=== PATIENT | male | born 1960 | race Caucasian/White ===

== ENCOUNTER 2022-05-02 08:58 | Outpatient (REF) | payer OTHER, SELFPAY ==
[2022-05-02 12:42] LABS: Influenza A PCR NEGATIVE (Negative); Influenza B PCR NEGATIVE (Negative); Resp Syncy Virus RNA Qual PCR NEGATIVE (Negative); SARS COV2 PCR INHOUSE NEGATIVE (Negative)
== END 2022-05-02 08:59 | disposition home or self-care (01) ==
LOC: HO.LAB 08:58
PROVIDERS: Visit Provider Family Medicine
DX: R05.9 Cough, unspecified (principal); Z20.822 Contact with and (suspected) exposure to COVID-19
CPT/HCPCS: 0241U

== ENCOUNTER → 2022-07-04 13:47 | Outpatient (BNVA) | payer OTHER, SELFPAY | PROVIDERS: PCP Hospitalist; Referring Provider Hospitalist; Visit Provider Internal Medicine | DX: I42.8 Other cardiomyopathies (principal); Z45.02 Encounter for adjustment and management of automatic implantable cardiac defibrillator | CPT/HCPCS: 93005; 99202 ==

== ENCOUNTER 2022-07-06 09:48 | Outpatient (REF) | payer OTHER, SELFPAY ==
[2022-07-06 11:16] LABS: Hematocrit 48.2 % (42.0-52.0); Hemoglobin 15.2 g/dl (14.0-18.0); Mean Corpuscular HGB Conc 31.5 g/dl (31.0-36.0); Mean Corpuscular Hemoglobin 26.5 pg (27.0-33.0); Mean Corpuscular Volume 84.1 fL (80.0-98.0); Mean Platelet Volume 10.6 fL (9.4-12.4); Platelet Count 235 X10*3/uL (160-400); Red Blood Count 5.73 X10*6/uL (4.60-5.80); Red Cell Distribution Width 16.6 % (11.0-16.0); White Blood Count 8.4 X10*3/uL (4.8-10.8)
[2022-07-06 12:33] LABS: Alanine Aminotransferase 20 U/L (0-40); Alkaline Phosphatase 131 U/L (39-117); Anion Gap 15 (12-20); Aspartate Amino Transferase 15 U/L (5-37); Bilirubin Total 0.5 mg/dL (0.0-1.0); Blood Urea Nitrogen 20 mg/dL (9-16); Calcium 9.1 mg/dL (8.4-10.2); Carbon Dioxide 31 mmol/L (22-29); Chloride 103 mmol/L (96-108); Cholesterol 145 mg/dL; Estimated Glomerular Filt Rate > 60; Glucose Fasting 111 mg/dL (60-99); HDL Cholesterol 40 mg/dL; LDL Cholesterol Calculated 90 mg/dl; Magnesium 2.1 mg/dL (1.6-2.6); Phosphorus 3.2 mg/dL (2.7-4.5); Potassium 4.5 mmol/L (3.3-5.1); Sodium 144 mmol/L (135-145); TSH reflex Free T4 1.08 uIU/mL (0.32-4.0); Total Protein 6.4 g/dL (6.5-8.0); Triglycerides 75 mg/dL
[2022-07-06 14:18] LABS: Appearance Urine Clear; Color Urine Yellow; Glucose Urine UA Negative (Negative); Leukocyte Esterase Urine Trace (Negative); Nitrite Urine Negative (Negative); PH 5.5 (5.0-9.0); UMIC TRIGGER UA YES; Urine Blood Negative (Negative); Urine Ketones Negative (Negative); Urine Protein Negative (Neg-Trace)
[2022-07-06 14:20] LABS: Bacteria Urine None Seen (None Seen); Hyaline Casts Urine 0-2 /LPF (0-2); RBC Urine 0-2 /HPF (0-2); Squamous Epithelial Cell Urine 0-2 /HPF (0-2); WBC Urine 0-5 /HPF (0-5)
== END 2022-07-06 09:49 | disposition home or self-care (01) ==
LOC: HO.WFDLDS 09:48
PROVIDERS: Visit Provider Hospitalist
DX: Z00.00 Encounter for general adult medical examination without abnormal findings (principal); K21.9 Gastro-esophageal reflux disease without esophagitis
CPT/HCPCS: 36415; 80053; 80061; 81001; 83735; 84100; 84443; 85027

== ENCOUNTER 2022-11-08 13:30 | Outpatient (AMB) | payer OTHER, SELFPAY ==
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
[2022-11-08 13:31] VITALS: BP 118/64; PULSE 68; O2SAT 96; BMI 49.6
--- OUTSIDE RECORDS SUMMARY | 2022-11-08 13:32 | XMS_ITS | Continuity of Care Document ---
Author Name Unknown Organization [facility] Address [address] [place] [address]- Care Team Providers Care Spiral Winder Name Role Phone Berto Duong MD Primary Care Physician [place] [facility] [place](s): 06/08/22 - 07/08/22 [facility] [address] [place] [address]- Allergies, Adverse Reactions, Alerts No Known Allergies Immunizations Given and Recorded Vaccine Date Status Refusal Reason SARS-CoV-2 (COVID-19) mRNA BNT-162b2 vac 09/09/20 Recorded SARS-CoV-2 (COVID-19) mRNA BNT-162b2 vac 08/18/20 Recorded influenza virus vaccine, inactivated 1 02/22/18 Gi taty tetanus/diphtheria/pertussis, acel(Tdap) 11/21/13 Given 1Result Comment: [02/22/2018] [facility] 95505-300-08 Medications atorvastatin 40 mg oral tablet 1 tablet, By Mouth, Daily, # 90 tablet, 1 Refills, 06/13/22 16:26:00 EST, [facility] #[id number], 173, cm, 02/04/22 12:31:00 EDT, Height, 150.1, kg, 01/11/22 18:00:00 EDT, Dry Weight Start Date: 06/13/22 Status: Ordered carvedilol 12.5 mg oral tablet 1, tablet, By Mouth, 2 times a day, # 180 tablet, Refills 0, Tot. Refills 0, Maintenance, 06/13/22 16:12:00 EST, Route to Pharmacy Electronically, [facility] #[id number], 173, cm, 02/04/22 12:31:00 EDT, Height, 150.1, kg, 01/11/22 18:00:00 EDT, D... Start Date: 06/13/22 Status: Ordered Compression Stockings surgical, knee high length 20-30 mm Hg, # 2 each, Refills 5, Tot. Refills 5, Maintenance, Dx: Chronic Venous Hypertension, 12/21/21 11:50:00 EDT, venous HTN both legs, with pain, Supply Start Date: 12/21/21 Status: Ordered lisinopril 10 mg oral tablet 1, tablet, By Mouth, Daily, # 30 tablet, Refills 4, Maintenance, 04/14/22 7:25:00 EST, Route to Pharmacy Electronically, [facility] #[id number], 173, cm, 02/04/22 12:31:00 EDT, Height, 150.1, kg, 01/11/22 18:00:00 EDT, Dry Weight Start Date: 04/14/22 Status: Ordered omeprazole 20 mg oral enteric coated capsule 1 capsule, By Mouth, Daily, # 90 capsule, 3 Refills, Maintenance, 03/24/22 9:55:00 EST, [facility] #[id number], 173, cm, 02/04/22 12:31:00 EDT, Height, 150.1, kg, 01/11/22 18:00:00 EDT, Dry Weight Start Date: 03/24/22 Status: Ordered torsemide 10 mg oral tablet 2 tablet, By Mouth, Daily, # 60 tablet, 2 Refills, Maintenance, 06/13/22 18:55:00 EST, [facility] #[id number], 173, cm, 02/04/22 12:31:00 EDT, Height, 150.1, kg, 01/11/22 18:00:00 EDT, Dry Weight Start Date: 06/13/22 Status: Ordered Problem List Condition Confirmation Course Effective Dates Status H ealth Status Informant Benign Essential Hypertension Confirmed Active Cardiomyopathy Confirmed Active Cervical radiculopathy Confirmed Active COVID-19 1 Confirmed 01/16/22 Active Mild HTN Confirmed Active Morbid obesity Confirmed Active Other Left Bundle Branch Block Confirmed Active Severe obesity Confirmed Active 1Problem added by Discern Expert Social History Social History Type Response Smoking Status Former smoker; Tobac co user in household: No; Other: Quit 3 months ago; entered on: 03/06/17 Sex Patient Care team information Care Team Personnel Name: Sabrina Martins RN Position: [facility] RN Member Role: Primary Care Nurse Name: Mayelin Ocampo RN Position: [facility] RN Member Role: Primary Care Nurse Name: Carolyn Farrell RN Position: [facility] Residential Treatment Counselor Member Role: Primary Care Nurse Name: Berto Duong MD Position: [facility] Primary Care Physician Member Role: PCP Address: Address: [address] [place] [address]- Name: Adrianne Soni RN Position: [facility] RN Member Role: Primary Care Nurse Name: Carolyn Aguilar RN Position: [facility] RN Member Role: Primary Care Nurse Name: John Vernon DO Position: [facility] Cardiology MD Member Role: Lifetime Consulting Physician Address: Address: [address] [place] [address], [facility] [address] [facility] [place] [address]- Care Team Related Persons Name: JAEL, DYLAN Address: [address] [place] [address] Name: JAMAL HOLLAND Address: home [address] [place] [address] Name: PT REQUESTS, NO ONE
--- OUTSIDE RECORDS SUMMARY | 2022-11-08 13:32 | XMS_ITS | Continuity of Care Document ---
Author Name Unknown Organization [facility] Address [address] [place] [address]- Care Team Providers Care Rest Room Maid Name Role Phone Berto Duong MD Primary Care Physician [phone] Encounter [facility] [place] Date(s): 05/19/22 - 07/09/22 [facility] [address] [place] [address]- Attending Physician: Federico Barcenas MD Admitting Physician: Federico Barcenas MD Referring Physician: Berto Duong MD Allergies, Adverse Reactions, Alerts No Known Allergies Immunizations Given and Recorded Vaccine Date Status Refusal Reason SARS-CoV-2 (COVID-19) mRNA BNT-162b2 vac 09/09/20 Recorded SARS-CoV-2 (COVID-19) mRNA BNT-162b2 vac 08/18/20 Recorded influenza virus vaccine, inactivated 1 02/22/18 Gi taty tetanus/diphtheria/pertussis, acel(Tdap) 11/21/13 Given 1Result Comment: [02/22/2018] [facility] 41837-049-39 Medications atorvastatin 40 mg oral tablet 1 tablet, By Mouth, Daily, # 90 tablet, 1 Refills, 06/13/22 16:26:00 EST, [facility] #[id number], 173, cm, 02/04/22 12:31:00 EDT, Height, 150.1, kg, 01/11/22 18:00:00 EDT, Dry Weight Start Date: 06/13/22 Status: Ordered carvedilol 12.5 mg oral tablet 1, tablet, By Mouth, 2 times a day, # 180 tablet, Refills 0, Tot. Refills 0, Maintenance, 06/13/22 16:12:00 EST, Route to Pharmacy Electronically, [facility] #[id number], 173, cm, 02/04/22 12:31:00 EDT, Height, 150.1, [...] 04/14/22 7:25:00 EST, Route to Pharmacy Electronically, [facility] #[id number], 173, cm, 02/04/22 12:31:00 EDT, Height, 150.1, kg, 01/11/22 18:00:00 EDT, Dry Weight Start Date: 04/14/22 Status: Ordered omeprazole 20 mg oral enteric coated capsule 1 capsule, By Mouth, Daily, # 90 capsule, 3 Refills, Maintenance, 03/24/22 9:55:00 EST, [facility] #[id number], 173, cm, 02/04/22 12:31:00 EDT, Height, 150.1, kg, 01/11/22 18:00:00 EDT, Dry Weight Start Date: 03/24/22 Status: Ordered torsemide 10 mg oral tablet 2 tablet, By Mouth, Daily, # 60 tablet, 2 Refills, Maintenance, 06/13/22 18:55:00 EST, [facility] #[id number], 173, cm, 02/04/22 12:31:00 EDT, Height, 150.1, [...] Team Personnel Name: Sabrina Martins RN Position: [facility] RN Member Role: Primary Care Nurse Name: Mayelin Ocampo RN Position: [facility] RN Member Role: Primary Care Nurse Name: Carolyn Farrell RN Position: [facility] Hospital Installation And Repair Technician Member Role: Primary Care Nurse Name: Berto Duong MD Position: [facility] Primary Care Physician Member Role: PCP Address: Address: [address] [place] [address]- Name: Adrianne Soni RN Position: [facility] RN Member Role: Primary Care Nurse Name: Carolyn Aguilar RN Position: [facility] RN Member Role: Primary Care Nurse Name: John Vernon DO Position: [facility] Cardiology MD Member Role: Lifetime Consulting Physician Address: Address: [address] [place] [address], [facility] [address] [place] [address]- Care Team Related Persons Name: DYLAN ELDER Address: [address] [place] [address] Name: JAMAL HOLLAND Address: [address] [place] [address] Name: PT REQUESTS, NO ONE
--- OUTSIDE RECORDS SUMMARY | 2022-11-08 13:32 | XMS_ITS | Continuity of Care Document ---
Author Name Unknown Organization [facility] Address [address] [place] [address]- Care Team Providers Care Light Adjuster Name Role Phone Berto Duong MD Primary Care Physician [phone] Encounter [facility] Date(s): 07/27/22 - 08/26/22 [facility] [address] [place] [address]- Attending Physician: AdmTammy francisco Admitting Physician: Admtr, Ar8 Referring Physician: Admtr, Ar8 Allergies, Adverse Reactions, Alerts No Known Allergies Immunizations Given and Recorded Vaccine Date Status Refusal Reason SARS-CoV-2 (COVID-19) mRNA BNT-162b2 vac 09/09/20 Recorded SARS-CoV-2 (COVID-19) mRNA BNT-162b2 vac 08/18/20 Recorded influenza virus vaccine, inactivated 1 02/22/18 Gi taty tetanus/diphtheria/pertussis, acel(Tdap) 11/21/13 Given 1Result Comment: [02/22/2018] [facility] 95774-283-23 Medications atorvastatin 40 mg oral tablet 1 tablet, By Mouth, Daily, # 90 tablet, 1 Refills, 06/13/22 16:26:00 EST, [facility] #[id number], 173, cm, 02/04/22 12:31:00 EDT, Height, 150.1, kg, 01/11/22 18:00:00 EDT, Dry Weight Start Date: 06/13/22 Status: Ordered carvedilol 12.5 mg oral tablet 1, tablet, By Mouth, 2 times a day, # 180 tablet, Refills 0, Tot. Refills 0, Maintenance, 06/13/22 16:12:00 EST, Route to Pharmacy Electronically, [facility] #[id number], 173, cm, 02/04/22 12:31:00 EDT, Height, 150.1, [...] 04/14/22 7:25:00 EST, Route to Pharmacy Electronically, [facility] #[id number], 173, cm, 02/04/22 12:31:00 EDT, Height, 150.1, kg, 01/11/22 18:00:00 EDT, Dry Weight Start Date: 04/14/22 Status: Ordered omeprazole 20 mg oral enteric coated capsule 1 capsule, By Mouth, Daily, # 90 capsule, 3 Refills, Maintenance, 03/24/22 9:55:00 EST, [facility] #[id number], 173, cm, 02/04/22 12:31:00 EDT, Height, 150.1, kg, 01/11/22 18:00:00 EDT, Dry Weight Start Date: 03/24/22 Status: Ordered torsemide 10 mg oral tablet 2 tablet, By Mouth, Daily, # 60 tablet, 2 Refills, Maintenance, 06/13/22 18:55:00 EST, [facility] #[id number], 173, cm, 02/04/22 12:31:00 EDT, Height, 150.1, [...] Team Personnel Name: Sabrina Martins RN Position: [facility] RN Member Role: Primary Care Nurse Name: Mayelin Ocampo RN Position: [facility] RN Member Role: Primary Care Nurse Name: Carolyn Farrell RN Position: [facility] Hospital Briquette Maker Member Role: Primary Care Nurse Name: Berto Duong MD Position: [facility] Primary Care Physician Member Role: PCP Address: Address: [address] [place] [id number]- Name: Adrianne Soni RN Position: [facility] RN Member Role: Primary Care Nurse Name: Carolyn Aguilar RN Position: [facility] RN Member Role: Primary Care Nurse Name: John Vernon DO Position: [facility] Cardiology MD Member Role: Lifetime Consulting Physician Address: Address: [address] [place] [address], [address] [facility] [place] [address]- Care Team Related Persons Name: DYLAN ELDER Address: [address] [place] [address] Name: JAMAL HOLLAND Address: [address] [place] [address] Name: PT REQUESTS, NO ONE
--- OUTSIDE RECORDS SUMMARY | 2022-11-08 13:32 | XMS_ITS | Continuity of Care Document ---
Author Name Unknown Organization [facility] Address [address] [place] [address]- Care Team Providers Care Director Of Public Safety Name Role Phone Berto Duong MD Primary Care Physician Encounter [facility] [place] Date(s): 06/09/22 - 07/09/22 [facility] [address] [place] [address]- Attending Physician: Tammy Fischer Admitting Physician: Tammy Fischer Referring Physician: AdmtrTammy Allergies, Adverse Reactions, Alerts No Known Allergies Immunizations Given and Recorded Vaccine Date Status Refusal Reason SARS-CoV-2 (COVID-19) mRNA BNT-162b2 vac 09/09/20 Recorded SARS-CoV-2 (COVID-19) mRNA BNT-162b2 vac 08/18/20 Recorded influenza virus vaccine, inactivated 1 02/22/18 Gi taty tetanus/diphtheria/pertussis, acel(Tdap) 11/21/13 Given 1Result Comment: [02/22/2018] [facility] 16080-422-55 Medications atorvastatin 40 mg oral tablet 1 tablet, By Mouth, Daily, # 90 tablet, 1 Refills, 06/13/22 16:26:00 EST, [facility] #[id number], 173, cm, 02/04/22 12:31:00 EDT, Height, 150.1, kg, 01/11/22 18:00:00 EDT, Dry Weight Start Date: 06/13/22 Status: Ordered carvedilol 12.5 mg oral tablet 1, tablet, By Mouth, 2 times a day, # 180 tablet, Refills 0, Tot. Refills 0, Maintenance, 06/13/22 16:12:00 EST, Route to Pharmacy Electronically, [facility] #[id number], 173, cm, 02/04/22 12:31:00 EDT, Height, 150.1, [...] 04/14/22 7:25:00 EST, Route to Pharmacy Electronically, [facility] #[id number], 173, cm, 02/04/22 12:31:00 EDT, Height, 150.1, kg, 01/11/22 18:00:00 EDT, Dry Weight Start Date: 04/14/22 Status: Ordered omeprazole 20 mg oral enteric coated capsule 1 capsule, By Mouth, Daily, # 90 capsule, 3 Refills, Maintenance, 03/24/22 9:55:00 EST, [facility] #[id number], 173, cm, 02/04/22 12:31:00 EDT, Height, 150.1, kg, 01/11/22 18:00:00 EDT, Dry Weight Start Date: 03/24/22 Status: Ordered torsemide 10 mg oral tablet 2 tablet, By Mouth, Daily, # 60 tablet, 2 Refills, Maintenance, 06/13/22 18:55:00 EST, [facility] #[id number], 173, cm, 02/04/22 12:31:00 EDT, Height, 150.1, [...] Team Personnel Name: Sabrina Martins RN Position: [facility] RN Member Role: Primary Care Nurse Name: Mayelin Ocampo RN Position: [facility] RN Member Role: Primary Care Nurse Name: Carolyn Farrell RN Position: [facility] Hospital Show Design Supervisor Member Role: Primary Care Nurse Name: Berto Duong MD Position: [facility] Primary Care Physician Member Role: PCP Address: Address: [address] [place] [address]- Name: Adrianne Soni RN Position: [facility] RN Member Role: Primary Care Nurse Name: Carolyn Aguilar RN Position: [facility] RN Member Role: Primary Care Nurse Name: John Vernon DO Position: [facility] Cardiology MD Member Role: Lifetime Consulting Physician Address: Address: [address] [place] [address], [facility] [address] [place] [address]- Care Team Related Persons Name: DYLAN ELDER Address: [address] [place] [address] Name: JAMAL HOLLAND Address: [address] [place] [address] Name: PT REQUESTS, NO ONE
--- OUTSIDE RECORDS SUMMARY | 2022-11-08 13:33 | XMS_ITS | Continuity of Care Document ---
Author Name Unknown Organization [facility] Address [address] [place] [address]- Care Team Providers Care Outside Plant Cable Engineer Name Role Phone Berto Duong MD Primary Care Physician [place] [facility] [place] 03/09[place]22 - 07/07/22 [facility] [address] [place] [address]- Attending Physician: Federico Barcenas MD Admitting Physician: Federico Barcenas MD Referring Physician: Berto Duong MD Allergies, Adverse Reactions, Alerts No Known Allergies Immunizations Given and Recorded Vaccine Date Status Refusal Reason SARS-CoV-2 (COVID-19) mRNA BNT-162b2 vac 09/09/20 Recorded SARS-CoV-2 (COVID-19) mRNA BNT-162b2 vac 08/18/20 Recorded influenza virus vaccine, inactivated 1 02/22/18 Gi taty tetanus/diphtheria/pertussis, acel(Tdap) 11/21/13 Given 1Result Comment: [02/22/2018] [facility] 46962-383-42 Medications atorvastatin 40 mg oral tablet 1 tablet, By Mouth, Daily, # 90 tablet, 1 Refills, 06/13/22 16:26:00 EST, [facility] #[id number], 173, cm, 02/04/22 12:31:00 EDT, Height, 150.1, kg, 01/11/22 18:00:00 EDT, Dry Weight Start Date: 06/13/22 Status: Ordered carvedilol 12.5 mg oral tablet 1, tablet, By Mouth, 2 times a day, # 180 tablet, Refills 0, Tot. Refills 0, Maintenance, 06/13/22 16:12:00 EST, Route to Pharmacy Electronically, [facility] #[id number], 173, cm, 02/04/22 12:31:00 EDT, Height, 150.1, [...] 04/14/22 7:25:00 EST, Route to Pharmacy Electronically, [facility] #[id number], 173, cm, 02/04/22 12:31:00 EDT, Height, 150.1, kg, 01/11/22 18:00:00 EDT, Dry Weight Start Date: 04/14/22 Status: Ordered omeprazole 20 mg oral enteric coated capsule 1 capsule, By Mouth, Daily, # 90 capsule, 3 Refills, Maintenance, 03/24/22 9:55:00 EST, [facility] #[id number], 173, cm, 02/04/22 12:31:00 EDT, Height, 150.1, kg, 01/11/22 18:00:00 EDT, Dry Weight Start Date: 03/24/22 Status: Ordered torsemide 10 mg oral tablet 2 tablet, By Mouth, Daily, # 60 tablet, 2 Refills, Maintenance, 06/13/22 18:55:00 EST, [facility] #[id number], 173, cm, 02/04/22 12:31:00 EDT, Height, 150.1, [...] Team Personnel Name: Sabrina Martins RN Position: [facility] RN Member Role: Primary Care Nurse Name: Mayelin Ocampo RN Position: [facility] RN Member Role: Primary Care Nurse Name: Carolyn Farrell RN Position: [facility] Hospital Client Relation Specialist Member Role: Primary Care Nurse Name: Berto Duong MD Position: [facility] Primary Care Physician Member Role: PCP Address: Address: [address] [place] [address]- Name: Adrianne Soni RN Position: [facility] RN Member Role: Primary Care Nurse Name: Carolyn Aguilar RN Position: [facility] RN Member Role: Primary Care Nurse Name: John Vernon DO Position: [facility] Cardiology MD Member Role: Lifetime Consulting Physician Address: Address: [address] [place] [address], [facility] [address] [place] [address]- Care Team Related Persons Name: DYLAN ELDER Address: [address] [place] [address] Name: JAMAL HOLLAND Address: [address] [place] [address] Name: PT REQUESTS, NO ONE
== END 2022-11-08 14:44 | disposition home or self-care (01) ==
LOC: HO.HMGFM 13:30
PROVIDERS: PCP Hospitalist; Visit Provider Family Medicine
DX: I42.8 Other cardiomyopathies (principal); I10 Essential (primary) hypertension; E66.01 Morbid (severe) obesity due to excess calories; Z68.42 Body mass index [BMI] 45.0-49.9, adult
CPT/HCPCS: 99214

== ENCOUNTER → 2022-12-29 14:06 | Outpatient (REF) | payer OTHER, SELFPAY ==
--- NOTE | 2022-12-29 14:12 | CA_ITS ---
Transthoracic Echocardiogram Patient (Last, First, Middle): Stanley Hyatt, Gender: Male Date of : 1960 Age: 62 Procedure Date: 12/29/2022 Procedure Type: Transthoracic Echocardiogram Location: OP Height: 180.34 cm Weight: 130.64 kg BSA: 2.46 m2 Heart Rate: 64 bpm BP: 108 / 60 mmHg Change Agent: SB Referring MD: Norbert Fleming MD Database Coordinator: Zurdo Mcdaniel MD Symptoms: I42.8 - Other cardiomyopathies Study Quality: Technically Difficult ECG Rhythm: Ventriculary paced rhythm Conclusions: - 1. Technically limited study despite use of contrast agent 2. LV systolic function is mildly reduced at 45-50% 3. Limited visualization of cardiac valves with cardiac valvular Dopplers within normal limits Findings Procedure Information Contrast agent, definity, is being given per protocol without apparent complications. The quality of the study was technically difficult. The study quality is limited by patients body habitus. Left Ventricle The left ventricle was not well visualized. Normal left ventricular cavity size. The left ventricular systolic function is mildly decreased. The visually estimated ejection fraction is between 45-50%. Regional wall motion abnormalities can not be excluded due to suboptimal endocardial definition. Diastolic function is indeterminate on the basis of available data. Right Ventricle The right ventricle was not well visualized. There is a pacemaker wire seen in the right ventricle. Atria The left atrium was not well visualized. Interatrial shunt cannot be excluded. The right atrium was not well visualized. Aortic Valve The aortic valve was not well visualized. There is no aortic valve stenosis. There is no aortic valve regurgitation. Mitral Valve The mitral valve was not well visualized. Pulmonic Valve The pulmonic valve was not well visualized. Tricuspid Valve The tricuspid valve was not well visualized. Tricuspid regurgitation envelope is inadequate for calculation of right ventricular systolic pressure. Normal right atrial pressure. Great Vessels All visible segments of the aorta are normal in size. The pulmonary artery was not well visualized. Venous The inferior vena cava is normal in size and collapses greater than 50% with inspiration. Pericardium/Pleural The pericardium was not well visualized. Prior Study Comparison No prior study available for comparison. Measurements 2D Linear Measurements IVSd: 0.84 0.6-0.9/0.6-1.0 cm Ao Root: 3.20 2.1-3.5 cm LA Diam: 3.20 2.7-3.8/3.0-4.0 cm LAIDs Index: 1.30 1.5-2.3 cm/m2 LVOT Diam: 2.40 3.0+(-)1.3 cm 2D Systolic Function EF 4C: 54.20 >55% EF 2C: 49.90 >55% EF BiP: 49.80 >55% Mitral Valve MV Pk E: 0.57 MV PK A: 0.44 MV Decel Time: 277.00 E/A: 1.30 E'Lateral: 6.31 E'Medial: 5.55 E/E' Med: 10.30 E/E' Lat: 9.00 PHT: 81.00 MVA PHT: 2.72 Decel Hall: 2.05 Aortic Valve AoV Pk Sid: 1.20 AoV Pk Grad: 6.00 TORIN: 3.51 LVOT LVOT Pk Sid: 0.79 LVOT Mn Sid: 0.57 LVOT VTI: 0.14 LVOT Pk Grad: 2.00 LVOT Mn Grad: 2.00 LVOT Diam: 2.40 LVOT Area: 4.52 Diastolic Function MV Pk E: 0.57 MV Pk A: 0.44 E/A: 1.30 E'Medial: 5.55 E/E' Med: 10.30 E' Laterial: 6.31 E/E' Lat: 9.00 Right Ventricle TVS' Sid: 12.30 Tricuspid Valve RA Press: 3.00 Great Vessels Aorta Ao Root-2D: 3.20 2.0-3.7 cm Ao Asc: 3.50 2.1-3.4 cm Updated in Other Vendor System with Status of Final Zurdo Mcdaniel MD electronically signed on 12/30/2022 12:27:35 PM with status of Final
== END ==
LOC: HO.CARD 14:06
PROVIDERS: PCP Hospitalist; Visit Provider Family Medicine
DX: I42.8 Other cardiomyopathies (principal)
CPT/HCPCS: 93306; Q9957

== ENCOUNTER → 2022-12-29 14:12 | Outpatient (BNV) | payer OTHER, SELFPAY | PROVIDERS: PCP Hospitalist; Visit Provider Internal Medicine Cardiovascular Disease | DX: I42.8 Other cardiomyopathies (principal) | CPT/HCPCS: 93306 ==

== ENCOUNTER → 2023-01-13 08:54 | Outpatient (BNVA) | payer OTHER, SELFPAY | PROVIDERS: PCP Hospitalist; Visit Provider Internal Medicine ==

== ENCOUNTER 2023-01-16 08:21 | Outpatient (AMB) | payer OTHER, SELFPAY ==
[2023-01-16 08:33] VITALS: BP 124/74; PULSE 81; RESP 12; TEMP 36.1; O2SAT 98; BMI 49.1
--- NOTE | 2023-01-16 08:33 | MHC.PC.OV ---
Vital Signs 01/16/23 08:33 Height 5 ft 5 in Weight 295 lb BMI 49.1 BP 124/74 Blood Pressure Location Lt brachial Position Sitting Respiration 12 Pulse 81 Pulse Source Pulse Oximeter Temp 97 F Temp Source Temporal Artery Scan Pulse Oximetry (%) 98 Oxygen Delivery Method Room Air Intake Visit Reasons: 2 Month F/U cardiomyopathy and chronic conditions Intake Note: Patient states that Pacemaker defilbulator in his chest has been going off for about a week. He went to cardio and was told that one of his betina is not giving the right charge and is sticking out of place. 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 Blood pressure today is 124/74. He is on carvedilol 12.5mg b.i.d., hydrochlorothiazide 12.5mg and lisinopril 10mg daily. Echocardigram 12/29/22 showed LV systolic function mildly reduced at 45-50%. Pt reports issues with his pacemaker the past month and alarm has been going off frequently. He reports he has been following up with Cardiology Dr. Trimble's group. Pt notes he continues smoking 6-7 small cigars per day. [facility] Medical History NICM (nonischemic cardiomyopathy) Hypertension Pacemaker Family History Mother No problems noted. Father No problems noted. Social History Household Members: Family Housing: Other Alcohol intake: current Alcohol intake frequency: a few times a month Alcohol type: hard liquor Patient Tobacco Use Status: Current someday Tobacco user Tobacco use type: Cigar e-Cigarette/Vaping Use: Never Used service: No Current occupational status: retired Cognitive needs: No Hearing needs: No Vision needs: No Questionnaire Thrive Questionnaire Date Thrive assessed: 06/21/22 JULIO-7 AMB Questionnaire JULIO-7 Date JULIO - 7 assessed: 06/21/22 Source: Developed by Drs. Anthony Melendez, Trini Dumont, Jose Alfredo Feliz and colleagues, with an educational jovanna from [employer]. Review of Systems Const Denies chills, Denies fatigue, Denies fever(s), Denies headache(s) and Denies weakness ENT Denies dizziness and Denies headache(s) Card Denies chest pain, Denies lightheadedness, Denies dyspnea and Denies other (Palpitations) Resp Denies cough, Denies dyspnea, Denies wheezing and Denies other ( shortness of breath) Musc Denies numbness and Denies tingling Neuro Denies dizziness, Denies headache(s), Denies numbness, Denies tingling, Denies paresthesias and Denies weakness Psych Denies anxiety and Denies depression Endo Denies fatigue Aller/Immun Denies wheezing Physical exam (Primary Care) Vital Signs: Last Vital Signs Temp 97 F 01/16/23 08:33 Pulse 81 01/16/23 08:33 Resp 12 01/16/23 08:33 BP 124/74 01/16/23 08:33 Pulse Ox 98 01/16/23 08:33 Oxygen Delivery Method Room Air 01/16/23 08:33 BMI result Body Mass Index 49.1 Tobacco/Smoking Status: Tobacco use Status Patient Tobacco Use Status Current someday Tobacco 01/16/23 08:43 Tobacco use type Cigar 01/16/23 08:43 e-Cigarette/Vaping Use Never Used 01/16/23 08:43 Thrive Assessment: Date of Thrive Assessment Date Thrive assessed 06/21/22 01/16/23 08:43 Const General: no acute distress and well developed Nutritional Appearance: obese morbidly obese Orientation/consciousness: patient oriented x3 HENMT Head: Yes normocephalic and Yes atraumatic Eyes General: appearance normal, both eyes and all related structures Pupils: Equal, round and reactive pupils present EOM: EOMs intact bilaterally Resp Effort & Inspection: normal respiratory effort Auscultation: clear to auscultation bilaterally Cardio Rate: regular rate Rhythm: regular rhythm Heart sounds: S1 normal heart sound present, S2 normal heart sound present, no gallops, no murmurs and no rubs Neuro General: patient oriented x3 and gait normal Cranial nerves: Yes Equal, round and reactive pupils present Psych Affect: normal affect Assessment and Plan Assessment & Plan (1) NICM (nonischemic cardiomyopathy): Code(s): I42.8 - Other cardiomyopathies Plan: Has pacer/defibrillator but patient notes that alarm has been going off frequently. Pacer seems to be displaced from pocket and leads may be displaced/disconnected Needs to see Cardiology rather urgently and I have asked the office to call and get him scheduled. He was seen in June and follow-up was scheduled for 3 months but patient had an gotten echocardiogram done as he said they did not contact him. Now has had echocardiogram completed and this shows mildly decreased ejection fraction (45-50%) Patient is feeling well but as above, alarm on device is still frequently going off. (2) HTN, goal below 140/90: Code(s): I10 - Essential (primary) hypertension Plan: Blood pressure is well controlled. Goal is less than 130/80 Continue current medication regimen (3) Ejection fraction < 50%: Code(s): R94.30 - Abnormal result of cardiovascular function study, unspecified Plan: Controlled blood pressure And continue torsemide (4) Pacemaker: Code(s): Z95.0 - Presence of cardiac pacemaker Plan: Pacemaker device appears to be out of pocket on his chest and possible lead wire dislodgement. Alarms going off frequently Needs be followed by cardiology. I do not have any recent notes from them. (5) Smoker: Code(s): F17.200 - Nicotine dependence, unspecified, uncomplicated Plan: Urged patient that he should decrease and stop smoking. Coding Level of Care Code Est Pt Level 4 (09187) Diagnoses NICM (nonischemic cardiomyopathy) I42.8 HTN, goal below 140/90 I10 Ejection fraction < 50% R94.30 Pacemaker Z95.0 Smoker F17.200
== END 2023-01-16 09:24 | disposition home or self-care (01) ==
PROVIDERS: PCP Hospitalist; Visit Provider Family Medicine
DX: I42.8 Other cardiomyopathies (principal); I10 Essential (primary) hypertension; F17.210 Nicotine dependence, cigarettes, uncomplicated; R94.30 Abnormal result of cardiovascular function study, unspecified; Z95.0 Presence of cardiac pacemaker
CPT/HCPCS: 99214

== ENCOUNTER 2023-02-15 09:36 | Outpatient (AMB) | payer OTHER, SELFPAY ==
--- NOTE | 2023-02-16 11:53 | MHC.OFFVIS ---
Intake Intake Visit Reasons: pacer ck OK per DC ? reprogram Allergies No Known Allergies Allergy (Verified 01/16/23 08:41) PFSH Medical History NICM (nonischemic cardiomyopathy) Hypertension Pacemaker Family History Mother No problems noted. Father No problems noted. Social History Household Members: Family Housing: Other Alcohol intake: current Alcohol intake frequency: a few times a month Alcohol type: hard liquor Patient Tobacco Use Status: Current someday Tobacco user Tobacco use type: Cigar e-Cigarette/Vaping Use: Never Used service: No Current occupational status: retired Cognitive needs: No Hearing needs: No Vision needs: No Office Procedures Cardiac Device Check Cardiac Device Check Details: Office device check. Battery 18 months, DDDR mode, LV tip to LV ring lead impedance warning, Changed vector from LV tip to RV carlos, RA threshold 0.57 volts at 0.4 milliseconds, RV threshold 0.75 volts at 0.4 milliseconds, LV threshold final 0.75 volts at 0.4 millisecond, no VT or VF, no therapies, V paced 96.7% of time 50911-LW Cardiac Device Check, multi lead implantable defibrillator Procedure code (CPT) selection complete Coding Level of Care Code Procedure Only CPT Codes Cardiac Device Check - Cardiac Device 6: 06646-MY Cardiac Device Check, multi lead implantable defibrillator ([id number])
== END 2023-02-15 10:47 | disposition home or self-care (01) ==
PROVIDERS: PCP Hospitalist; Visit Provider Nurse Practitioner Family
DX: I42.9 Cardiomyopathy, unspecified (principal); Z95.810 Presence of automatic (implantable) cardiac defibrillator
CPT/HCPCS: 93284

== ENCOUNTER → 2023-02-15 09:36 | Outpatient (BNVA) | payer OTHER, SELFPAY | PROVIDERS: PCP Hospitalist; Visit Provider Nurse Practitioner Family ==

== ENCOUNTER 2023-02-21 09:18 | Outpatient (AMB) | payer OTHER, SELFPAY ==
--- NOTE | 2023-02-21 09:19 | A.OFFPC_ITS ---
Vital Signs 02/21/23 09:20 Height 5 ft 11 in Weight 290 lb 6 oz BMI 40.5 BP 112/70 Blood Pressure Location Rt brachial Position Sitting Respiration 14 Pulse 83 Pulse Source Pulse Oximeter Temp 98.7 F Pulse Oximetry (%) 97 Oxygen Delivery Method Room Air Intake Visit Reasons: MADY - f/u pacemaker dislodgement, hypertension Intake Note: Patient is here for a transfer of care from to . Patient is here to follow up with a pacemaker dislodgment and hypertension. Patient reports he has lost 96 pounds. Patient reports weight loss since switching from soda to crystal light and taking a water pill. Patient reports he refuses the flu shot and covid shot moving forward. Documented refusal of flu shot. 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 Last office visit/CPE: Acute issue(s): Pacemaker dislodgement f/u -Follows up with them in 3 months. PMHx: HLD, Cardiomyopathy, HTN, GERD, Low back pain SurgHx: Pacer/DeFib, L Knee arthroscopy, Achilles repairs b/L, Cervical repair FHx: Mom: Heart dz. Dad: Heart Dz. mGF: DM SocHx: Cigars. EtOH holidays several drinks. No drugs. PFSH Medical History NICM (nonischemic cardiomyopathy) Hypertension Pacemaker Family History Mother No problems noted. Father No problems noted. Social History (Updated 02/21/23 @ 09:36 by Rachell Marinelli CMA) Household Members: Family Housing: Other Housing Other:: Patient states he takes care of his mom. Alcohol intake: current Alcohol intake frequency: holidays/special occasions only Alcohol type: hard liquor Patient Tobacco Use Status: Current someday Tobacco user Tobacco use type: Cigar Cigarettes Per Day: 8 Years Smoked: 48 years e-Cigarette/Vaping Use: Never Used service: No Current occupational status: retired Sexual orientation: Unable to collect Gender identity: Unable to collect Cognitive needs: No Hearing needs: No Vision needs: No Questionnaire Thrive Questionnaire Date Thrive assessed: 06/21/22 JULIO-7 AMB Questionnaire JULIO-7 Date JULIO - 7 assessed: 06/21/22 Source: Developed by Drs. Anthony Melendez, Trini Dumont, Jose Alfredo Feliz and colleagues, with an educational jovanna from [employer]. Review of Systems Const Denies chills, Denies fatigue, Denies fever(s), Denies headache(s) and Denies weakness ENT Denies dizziness and Denies headache(s) Card Denies chest pain, Denies lightheadedness, Denies dyspnea and Denies other (Palpitations) Resp Denies cough, Denies dyspnea, Denies wheezing and Denies other ( shortness of breath) Musc Denies numbness and Denies tingling Neuro Denies dizziness, Denies headache(s), Denies numbness, Denies tingling, Denies paresthesias and Denies weakness Psych Denies anxiety and Denies depression Endo Denies fatigue Aller/Immun Denies wheezing Physical exam (Primary Care) Vital Signs: Last Vital Signs Temp 98.7 F 02/21/23 09:20 Pulse 83 02/21/23 09:20 Resp 14 02/21/23 09:20 BP 112/70 02/21/23 09:20 Pulse Ox 97 02/21/23 09:20 Oxygen Delivery Method Room Air 02/21/23 09:20 BMI result Body Mass Index 40.5 Tobacco/Smoking Status: Tobacco use Status Tobacco use date assessed 02/21/23 02/21/23 09:36 Patient Tobacco Use Status Current someday Tobacco 02/21/23 09:36 Tobacco use type Cigar 02/21/23 09:36 e-Cigarette/Vaping Use Never Used 02/21/23 09:36 Thrive Assessment: Date of Thrive Assessment Date Thrive assessed 06/21/22 02/21/23 09:19 Const General: no acute distress and well developed Nutritional Appearance: obese morbidly obese Orientation/consciousness: patient oriented x3 [facility] Head: Yes normocephalic and Yes atraumatic Eyes General: appearance normal, both eyes and all related structures Pupils: Equal, round and reactive pupils present EOM: EOMs intact bilaterally Resp Effort & Inspection: normal respiratory effort Auscultation: clear to auscultation bilaterally Cardio Rate: regular rate Rhythm: regular rhythm Heart sounds: S1 normal heart sound present, S2 normal heart sound present, no gallops, no murmurs and no rubs Neuro General: patient oriented x3 and gait normal Cranial nerves: Yes Equal, round and reactive pupils present Psych Affect: normal affect Assessment and Plan Assessment & Plan (1) Pacemaker lead malfunction: Code(s): T82.110A - Breakdown (mechanical) of cardiac electrode, initial encounter Plan: Device?was?interrogated?and?adjusted Follow-up?with?Cardiology?as?recommended (2) Cardiomyopathy: Code(s): I42.9 - Cardiomyopathy, unspecified Plan: Continue?blood?pressure?control Continue?carvedilol Stable (3) Hypertension: Code(s): I10 - Essential (primary) hypertension Plan: Blood?pressure?is?well?controlled.??Goal?is?less?than?130/80 Continue?current?medication?regimen (4) Chronic GERD: Code(s): K21.9 - Gastro-esophageal reflux disease without esophagitis Plan: Stable (5) Back pain: Code(s): M54.9 - Dorsalgia, unspecified Plan: Patient?notes?that?back?pain?has?been?improving Likely?improving?at?least?partly?due?to?weight?loss Encouraged?exercise?as?tolerated If?he?has?a?flare?up,?can?refer?him?back?to?pain?management?where?he?said?he?had ?good?results?in?the?past. (6) Laboratory exam ordered as part of routine general medical examination: Code(s): Z00.00 - Encounter for general adult medical examination without abnormal findings Plan: Check?labs Plan Encouraged?exercise.??Patient?says?that?he?has?difficulty?walking?due?to?low?ba ck?pain?that?flares?up?with?walking.??Encouraged?cycling?which?he?says?he?could? do?accept?his?stationary?bike?has?arm?movements?and?this?is?difficult?with?his?c urrent?pacer?placement. Coding Level of Care Code Est Pt Level 4 (33818) Diagnoses Pacemaker lead malfunction T82.110A Cardiomyopathy I42.9 Hypertension I10 Chronic GERD K21.9 Back pain M54.9 Laboratory exam ordered as part of routine general medical examination Z00.00
[2023-02-21 09:20] VITALS: BP 112/70; PULSE 83; RESP 14; TEMP 37.1; O2SAT 97; BMI 40.5
== END 2023-02-21 10:34 | disposition home or self-care (01) ==
PROVIDERS: PCP Hospitalist; Visit Provider Family Medicine
DX: T82.110A Breakdown (mechanical) of cardiac electrode, initial encounter (principal); I42.9 Cardiomyopathy, unspecified; I10 Essential (primary) hypertension; K21.9 Gastro-esophageal reflux disease without esophagitis; M54.9 Dorsalgia, unspecified; Z00.00 Encounter for general adult medical examination without abnormal findings
CPT/HCPCS: 99214

== ENCOUNTER 2023-05-01 11:57 | Outpatient (AMB) | payer OTHER, SELFPAY ==
--- NOTE | 2023-05-01 18:08 | MHC.OFFVIS ---
Intake Intake Visit Reasons: 3 mth f/up lead ck Allergies No Known Allergies Allergy (Verified 02/21/23 09:30) PFSH Medical History (Updated 02/21/23 @ 10:09 by David Maxwell) NICM (nonischemic cardiomyopathy) Hypertension Pacemaker Family History Mother No problems noted. Father No problems noted. Social History (Updated 02/21/23 @ 09:36 by Rachell Marinelli CMA) Household Members: Family Housing: Other Housing Other:: Patient states he takes care of his mom. Alcohol intake: current Alcohol intake frequency: holidays/special occasions only Alcohol type: hard liquor Patient Tobacco Use Status: Current someday Tobacco user Tobacco use type: Cigar Cigarettes Per Day: 8 Years Smoked: 48 years e-Cigarette/Vaping Use: Never Used service: No Current occupational status: retired Sexual orientation: Unable to collect Gender identity: Unable to collect Cognitive needs: No Hearing needs: No Vision needs: No Office Procedures Cardiac Device Check Cardiac Device Check Details: Interrogation done today, Medtronic dual-chamber pacemaker, DDD are mode, low rate 60, battery life 13 months, a paced 68%, V paced 96.3%, no alerts, right atrial threshold 0.75 volts at 0.4 milliseconds, RV threshold 0.75 volts at 0.4 milliseconds, LV threshold 1 volt at 0.4 milliseconds. 83442-YS Cardiac Device Check, multi lead implantable defibrillator Procedure code (CPT) selection complete Assessment & Plan Assessment & Plan (1) Cardiac defibrillator in place: Code(s): Z95.810 - Presence of automatic (implantable) cardiac defibrillator Plan: interrogation today Coding Level of Care Code Procedure Only Diagnoses Cardiac defibrillator in place Z95.810 CPT Codes Cardiac Device Check - Cardiac Device 6: 62520-GS Cardiac Device Check, multi lead implantable defibrillator ([id number])
== END 2023-05-01 13:09 | disposition home or self-care (01) ==
PROVIDERS: PCP Hospitalist; Visit Provider Nurse Practitioner Family
DX: I42.9 Cardiomyopathy, unspecified (principal); Z95.0 Presence of cardiac pacemaker
CPT/HCPCS: 93284

== ENCOUNTER → 2023-05-01 11:57 | Outpatient (BNVA) | payer OTHER, SELFPAY | PROVIDERS: PCP Hospitalist; Visit Provider Nurse Practitioner Family ==

== ENCOUNTER 2023-05-18 10:34 | Outpatient (REF) | payer OTHER, SELFPAY ==
[2023-05-18 14:30] LABS: MANUAL DIFF FLAG NO
[2023-05-18 14:32] LABS: Basophils Absolute Auto 0.1 X10*3/uL (0.0-0.2); Basophils Percent Auto 0.5 % (0-2); Eosinophils Absolute Auto 0.3 X10*3/uL (0.0-0.4); Eosinophils Percent Auto 2.9 % (0-4); Hematocrit 45.6 % (42.0-52.0); Hemoglobin 15.1 g/dl (14.0-18.0); Imm Gran Abs Auto 0.02 X10*3/uL (0.00-0.03); Imm Gran Pct Auto 0.2 % (0.0-0.4); Lymphocytes Absolute Auto 1.8 X10*3/uL (1.2-4.9); Lymphocytes Percent Auto 18.8 % (20-40); Mean Corpuscular HGB Conc 33.1 g/dl (31.0-36.0); Mean Corpuscular Hemoglobin 28.6 pg (27.0-33.0); Mean Corpuscular Volume 86.4 fL (80.0-98.0); Mean Platelet Volume 10.6 fL (9.4-12.4); Monocytes Percent Auto 10.6 % (2-11); Neutrophils Absolute Auto 6.4 x10*3/uL (2.0-8.3); Platelet Count 236 X10*3/uL (160-400); Red Blood Count 5.28 X10*6/uL (4.60-5.80); Red Cell Distribution Width 14.8 % (11.0-16.0); White Blood Count 9.6 X10*3/uL (4.8-10.8)
[2023-05-18 14:37] LABS: Appearance Urine Clear; Color Urine Straw; Glucose Urine UA Negative (Negative); Leukocyte Esterase Urine Trace (Negative); Nitrite Urine Negative (Negative); UMIC TRIGGER UA YES; Urine Blood Negative (Negative); Urine Ketones Negative (Negative); Urine Protein Negative (Neg-Trace)
[2023-05-18 14:42] LABS: Bacteria Urine None Seen (None Seen); Hyaline Casts Urine 0-2 /LPF (0-2); RBC Urine 0-2 /HPF (0-2); Squamous Epithelial Cell Urine 0-2 /HPF (0-2); WBC Urine 0-5 /HPF (0-5)
[2023-05-18 15:01] LABS: Alanine Aminotransferase 28 U/L (0-40); Albumin Level 4.1 g/dL (3.5-5.0); Alkaline Phosphatase 114 U/L (39-117); Anion Gap 15 (12-20); Aspartate Amino Transferase 25 U/L (5-37); Bilirubin Total 0.6 mg/dL (0.0-1.0); Blood Urea Nitrogen 22 mg/dL (9-16); Calcium 9.7 mg/dL (8.4-10.2); Carbon Dioxide 28 mmol/L (22-29); Chloride 103 mmol/L (96-108); Cholesterol 132 mg/dL (<200); Estimated Glomerular Filt Rate > 60; Glucose Fasting 105 mg/dL (60-99); HDL Cholesterol 43 mg/dL (>40); LDL Cholesterol Calculated 75 mg/dL (<100); Potassium 3.7 mmol/L (3.3-5.1); Sodium 142 mmol/L (135-145); Triglycerides 74 mg/dL (<150)
[2023-05-18 15:02] LABS: Prostate Specific Antigen Scr 1.28 ng/mL (<0.05-4.0)
[2023-05-18 15:44] LABS: Creatinine Urine 13.76 mg/dL; Microalbumin Urine < 5.0 mg/L
== END 2023-05-18 10:35 | disposition home or self-care (01) ==
LOC: HO.WFDLDS 10:34
PROVIDERS: Visit Provider Family Medicine
DX: Z00.00 Encounter for general adult medical examination without abnormal findings (principal); I10 Essential (primary) hypertension; Z12.5 Encounter for screening for malignant neoplasm of prostate
CPT/HCPCS: 36415; 80053; 80061; 81001; 82043; 82570; 84153; 84443; 85025

== ENCOUNTER 2023-05-25 10:45 | Outpatient (AMB) | payer MEDICARE, SELFPAY ==
[2023-05-25 11:27] VITALS: BP 122/68; PULSE 65; O2SAT 98; BMI 39.6
--- NOTE | 2023-05-25 11:27 | A.OFFPC_ITS ---
Vital Signs 05/25/23 11:27 Height 5 ft 11 in Weight 284 lb BMI 39.6 BP 122/68 Blood Pressure Location Lt brachial Position Sitting Pulse 65 Pulse Source Pulse Oximeter Pulse Oximetry (%) 98 Oxygen Delivery Method Room Air Intake Visit Reasons: CPE with f/u labs and health maint. Intake Note: Patient is here for physical and follow up on labs. Allergies No Known Allergies Allergy (Verified 05/25/23 11:28) Tobacco use date assessed: 05/25/23 Fall risk assessment: No Falls in past year Last assessed Fall Risk: 05/25/23 Dental Screening Dental Screen Date: 05/25/23 Did you have a dental visit in the last 12 months?: No Did you have a dental problem in the last 6 months where you did not have access to dental care?: No Was dental information given to patient?: Patient declined HPI CPE with f/u labs and health maint. HPI Details 62 y/o male presents for an extended exa m with f/u labs and health maintenance. Labs were drawn 05/18/23. Reviewed labs with pt. Elevated fasting glucose of 105. A1c today 05/25/23 5.6%. Triglycerides 74. TC 132. LDL 75. HDL 43. He is on artovastatin 40mg. Blood pressure today 122/68. He is on HCTZ 12.5mg, lisinopril 10mg and carvedilol 12.5mg b.i.d. Pt reports he has been losing weight despite eating a lot of calories. He notes he smokes about 5 cigars a day. [facility] Medical History NICM (nonischemic cardiomyopathy) Hypertension Pacemaker Family History Mother No problems noted. Father No problems noted. Social History Household Members: Family Housing: Other Housing Other:: Patient states he takes care of his mom. Alcohol intake: current Alcohol intake frequency: holidays/special occasions only Alcohol type: hard liquor Patient Tobacco Use Status: Current someday Tobacco user Tobacco use type: Cigar Cigarettes Per Day: 8 Years Smoked: 48 years e-Cigarette/Vaping Use: Never Used service: No Current occupational status: retired Sexual orientation: Unable to collect Gender identity: Unable to collect Cognitive needs: No Hearing needs: No Vision needs: No Questionnaire PHQ-9 Over the last 2 weeks, how often have you been bothered by any of the following problems? 1. Little interest or pleasure in doing things: not at all 2. Feeling down, depressed, or hopeless: not at all 3. Trouble falling or staying asleep, or sleeping too much: not at all 4. Feeling tired or having little energy: not at all 5. Poor appetite or overeating: not at all 6. Feeling bad about yourself - or that you are a failure or have let yourself or your family down: not at all 7. Trouble concentrating on things, such as reading the newspaper or watching television: not at all 8. Moving or speaking so slowly that other people could have noticed. Or the opposite - being so fidgety or restless that you have been moving around a lot more than usual: not at all 9. Thoughts that you would be better off or of hurting yourself in some way: not at all Total score: 0 Depression Screening Interpretation: Negative Depression Screening Done: Yes Source: Developed by Drs. Anthony Melendez, Trini Dumont, Jose Alfredo Feliz and colleagues, with an educational jovanna from [email or web address]. Thrive Questionnaire Date Thrive assessed: 06/21/22 I am a: Patient What is your living situation today?: I have a steady place to live Within the past 12 months, did the food you bought not last and you didn't have the money to get more?: Never true Within the past 12 months, did you worry whether your food would run out before you got money to buy more?: Never true Do you have trouble paying for medicines?: No Do you have trouble getting transportation to medical appointments?: No Do you have trouble paying your heating and electricity bill?: No Do you have trouble taking care of your child, family member or friend?: No Do you have trouble with day-to-day activities such as bathing, preparing meals, shopping, managing finances, etc.?: No Are you currently unemployed and looking for a job?: No Are you interested in more education?: No THRIVE Score: 0 AUDIT C Alcohol Use Questionnaire (AUDIT-C) 1. How often do you have a drink containing alcohol?: Monthly or less 2. How many drinks containing alcohol do you have on a typical day when you are drinking?: 10 or more 3. How often do you have six or more drinks on one occasion?: Less than monthly Total Score: 6 JULIO-7 AMB Questionnaire JULIO-7 Date JULIO - 7 assessed: 05/25/23 Feeling nervous, anxious, or on edge: 1 = Several days Not being able to stop or control worryin = Not at all Worrying too much about different things: 3 = Nearly every day Trouble relaxin = Several days (due to his back.) Being so restless that it is hard to sit still: 1 = Several days Becoming easily annoyed or irritable: 0 = Not at all Feeling afraid as if something awful might happen: 0 = Not at all Total JULIO-7 score (0-4 normal; 5-9 mild; 10-14 moderate; 15-21 severe): 6 Source: Developed by Drs. Anthony Melendez, Trini Dumont, Jose Alfredo Feliz and colleagues, with an educational jovanna from [email or web address]. Review of Systems Const Denies chills, Denies fatigue, Denies fever(s), Denies headache(s) and Denies weakness Eyes Denies change in vision ENT Denies dizziness, Denies headache(s), Denies hearing loss, Denies nasal congestion, Denies sinus pain, Denies sinus pressure and Denies sore throat Card Denies chest pain, Denies lightheadedness, Denies dyspnea and Denies other (palpitations) Resp Denies cough, Denies dyspnea and Denies wheezing GI Denies abdominal pain, Denies melena, Denies hematochezia, Denies change in bowel habits, Denies dyspepsia and Denies nausea Denies hematuria and Denies dysuria Musc Denies abnormal gait, Denies myalgias, Denies arthralgias, Denies numbness and Denies tingling Skin/Breast Denies rash, Denies unusual bruising and Denies wounds Neuro Denies abnormal gait, Denies dizziness, Denies headache(s), Denies memory loss, Denies numbness, Denies Sensory deficit (Neuro), Denies tingling and Denies weakness Psych Denies anxiety, Denies depression and Denies memory loss Endo Denies cold intolerance, Denies fatigue, Denies heat intolerance, Denies polydipsia and Denies polyuria Parker/Lymph Denies easy bleeding and Denies easy bruising Aller/Immun Denies wheezing Physical exam (Primary Care) Vital Signs: Last Vital Signs Pulse 65 05/25/23 11:27 BP 122/68 05/25/23 11:27 Pulse Ox 98 05/25/23 11:27 Oxygen Delivery Method Room Air 05/25/23 11:27 BMI result Body Mass Index 39.6 Tobacco/Smoking Status: Tobacco use Status Tobacco use date assessed 05/25/23 05/25/23 11:29 Patient Tobacco Use Status Current someday Tobacco 05/25/23 11:29 Tobacco use type Cigar 05/25/23 11:29 e-Cigarette/Vaping Use Never Used 05/25/23 11:29 PHQ-9: PHQ-9 Score PHQ-9: Total score 0 05/25/23 12:02 Depression Screening Interpretation: Negative Thrive Assessment: Date of Thrive Assessment Date Thrive assessed 06/21/22 05/25/23 11:29 Const General: no acute distress, well developed, alert and awake Nutritional Appearance: obese Orientation/consciousness: patient oriented x3 HENMT Head: Yes normocephalic and Yes atraumatic Ears: hearing grossly normal bilaterally and TM's normal bilaterally General nose exam: Normal external nose present and Normal nares present Mouth: Normal oral and palatal mucosa present and moist mucous membranes Teeth and gingiva: dentition normal Throat: Yes posterior oropharynx normal Eyes General: appearance normal, both eyes and all related structures Pupils: Equal, round and reactive pupils present and Pupil accommodation reflex normal EOM: EOMs intact bilaterally Neck Neck: Yes normal visual inspection, Yes no lymphadenopathy and Yes trachea midline Thyroid: Thyroid normal Carotids: no bruits Lymphatic: no lymphadenopathy noted Chest Chest palpation & inspection: normal inspection of the chest Resp Effort & Inspection: normal respiratory effort Auscultation: clear to auscultation bilaterally Cardio Rate: regular rate Rhythm: regular rhythm Heart sounds: S1 normal heart sound present, S2 normal heart sound present, no gallops, no murmurs and no rubs Bruits: no abdominal aortic bruits and no carotid bruits GI Palpation (GI): No Abdominal aortic bruit present, Soft to palpation, nontender, No hepatosplenomegaly present and No Rebound tenderness present Auscultation: normal bowel sounds General: Yes no CVA tenderness Back/Spine/Pelvis Back: no CVA tenderness Cervical Spine: cervical ROM normal and No Cervical spine tenderness Thoracic/Lumbar Spine: thoraco-lumbar ROM normal, No pain with thoraco-lumbar ROM, No thoracic spinal tenderness and No lumbar spinal tenderness Skin Lesions: no lesions Rashes: no rashes Trauma: no lacerations or abrasions Wounds: no wounds Nails: normal Neuro General: patient oriented x3 Cranial nerves: Yes Equal, round and reactive pupils present Cognition (Neuro): normal cognition Gait exam (Neuro): Normal gait present Motor exam (neuro): 5/5 motor strength present throughout Sensory Exam: No Sensory deficit (Neuro) Deep tendon reflexes (DTR's): Right patellar reflex intensity grade: 2+ and Left patellar reflex intensity grade: 2+ Extrem General: Yes normal to inspection and No edema Psych Appearance: grossly normal Affect: normal affect Attitude: cooperative Thought process: Normal thought process present Results AMB Hemoglobin A1c AMB Hemoglobin A1c 5.6 % Last Edit by Dania Mario CMA on 05/25/23 12:19 Results Reviewed Results Reviewed: Laboratory Last Values Hgb A1c (Clinic) 5.6 % (4.0-6.0) 05/25/23 12:18 Assessment and Plan Assessment & Plan (1) Hypertension: Code(s): I10 - Essential (primary) hypertension Plan: Blood?pressure?is?controlled.??Goal?is?less?than?130/80 Continue?current?medication?regimen (2) Hyperlipidemia: Code(s): E78.5 - Hyperlipidemia, unspecified Plan: LDL?cholesterol?is?too?high.??Goal?is?less?than?70 Increase?atorvastatin?40?mg?daily?to?80?mg?daily. (3) Weight loss: Code(s): R63.4 - Abnormal weight loss Plan: Patient?has?had?significant?weight?loss. He?says?that?weight?loss?is?unintentional?however?he?is?only?eating?about?once?p er?day. Will?check?a?chest?x-ray Will?follow-up?in?a?c ouple?of?months?if?he?is?still?losing?weight?without?intention,?may?refer?him?to ?GI?to?investigate.??Lab?work?is?unremarkable If?there?are?no?concerns,?weight?loss?would?be?undesirable?so?I?have?enco uraged?this (4) Elevated fasting glucose: Code(s): R73.01 - Impaired fasting glucose Plan: Patient?has?is?mildly?elevated?fasting?blood?sugar?and?A1c?is?at?top?normal;?5.6 %.??He?has?a?strong?family?history?of?diabetes Likely?some?insulin?resistance?and?I?recommended?he?work?on?a?diet?low?i n?sugars?and?starches. (5) Smoker: Code(s): F17.200 - Nicotine dependence, unspecified, uncomplicated Plan: Smokes?cigars?regularly I?have?encouraged?cessation. (6) Unintentional weight loss: Code(s): R63.4 - Abnormal weight loss Plan: Patient?considers?his?weight?loss?unintentional?though?he?is?only?eating?about?1 ?meal?per?day Will?continue?to?monitor.??Blood?work?looks?okay.??Checking?a?chest?x- ray.??May?refer?to?GI?if?there?are?any?concerns. (7) Cardiomyopathy: Code(s): I42.9 - Cardiomyopathy, unspecified Plan: History?of?cardiomyopathy?and Pacer. Stable Follow-up?with?Cardiology (8) Back pain: Code(s): M54.9 - Dorsalgia, unspecified Plan: Chronic?back?pain. He?uses?Tylenol. Will?give?him?a?script?for?diclofenac?gel?and?he?can?drive?this?in?with?he Encouraged?good?posture?and?walking. (9) Screening for colon cancer: Code(s): Z12.11 - Encounter for screening for malignant neoplasm of colon Plan: Patient?says?he?had?a?Cologuard?test?within?3?years. Will?follow-up?with?his?next?physical Continue?screening?with?Cologuard?testing?Q?3?year (10) Screening for prostate cancer: Code(s): Z12.5 - Encounter for screening for malignant neoplasm of prostate Plan: PSA?was?within?normal?limits Will?continue?annual?screening (11) Adult general medical exam: Code(s): Z00.00 - Encounter for general adult medical examination without abnormal findings Plan: 62-year-old?male?presents?for?an?extended?exam Encouraged?healthy?diet?with?active?lifestyle?and?exercise?as?tolerated Orders: Orders XR chest 2V Today R63.4 - Abnormal weight loss AMB Hemoglobin A1c Today Z13.9 - Encounter for screening, unspecified Medications: New diclofenac sodium 1% 4 grams topical BID PRN 100 grams 3RF pain 30 days Changed From atorvastatin 40 mg PO BEDTIME 90 tabs 3RF To atorvastatin 80 mg PO BEDTIME 90 days 90 tabs 3RF Refilled atorvastatin 40 mg PO BEDTIME 90 tabs 3RF Coding Level of Care Code Est Pt Level 4 (42959) Diagnoses Hypertension I10 Hyperlipidemia E78.5 Weight loss R63.4 Elevated fasting glucose R73.01 Smoker F17.200 Unintentional weight loss R63.4 Cardiomyopathy I42.9 Back pain M54.9 Screening for colon cancer Z12.11 Screening for prostate cancer Z12.5 Adult general medical exam Z00.00
== END 2023-05-25 12:27 | disposition home or self-care (01) ==
PROVIDERS: PCP Family Medicine; Visit Provider Family Medicine
DX: Z00.00 Encounter for general adult medical examination without abnormal findings (principal); I42.9 Cardiomyopathy, unspecified; I10 Essential (primary) hypertension; R73.01 Impaired fasting glucose; E78.5 Hyperlipidemia, unspecified; R63.4 Abnormal weight loss; F17.290 Nicotine dependence, other tobacco product, uncomplicated; M54.9 Dorsalgia, unspecified; Z12.11 Encounter for screening for malignant neoplasm of colon; Z12.5 Encounter for screening for malignant neoplasm of prostate
CPT/HCPCS: 83036; 99214; 99396

== ENCOUNTER 2023-06-20 08:13 | Outpatient (AMB) | payer MEDICARE, SELFPAY ==
--- NOTE | 2023-06-20 08:24 | MHC.OFFWIV ---
Intake Vital Signs 06/20/23 08:25 Height 5 ft 11 in Weight 286 lb BMI 39.9 BP 130/70 Blood Pressure Location Rt brachial Respiration 14 Pulse 83 Pulse Source Pulse Oximeter Temp 99.0 F Temp Source Temporal Artery Scan Pulse Oximetry (%) 94 Oxygen Delivery Method Room Air Intake Visit Reasons: cough,sob Intake Note: Patient reports he has had 2 weeks of coughing, sore muscles from coughing, worsens at night. 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 Accompanied by: Self / Same As Patient Allergies No Known Allergies Allergy (Verified 06/20/23 09:03) Medication List - Last Reconciled 06/20/23 by Elena Nelson, PERLA- atorvastatin 80 mg PO BEDTIME 90 days carvedilol 12.5 mg PO BID diclofenac sodium 1% 4 grams topical BID PRN 30 days hydrochlorothiazide 12.5 mg PO DAILY lisinopril 10 mg PO DAILY omeprazole 20 mg PO DAILY torsemide 20 mg PO DAILY 30 days Do you need a note to return to daycare/school/sports/work: No HPI HPI Comments History of Present Illness Details Here today w cold like sx x 2 weeks using otc medication w/o relief waking up choking coughing so hard pulled a muscle worried about pna as he had this in 2021 denies hemoptysis denies sore throat, ear pain, chest pain PFSH Medical History NICM (nonischemic cardiomyopathy) Hypertension Pacemaker Family History Mother No problems noted. Father No problems noted. Social History Household Members: Family Housing: Other Housing Other:: Patient states he takes care of his mom. Alcohol intake: current Alcohol intake frequency: holidays/special occasions only Alcohol type: hard liquor Patient Tobacco Use Status: Current someday Tobacco user Tobacco use type: Cigar Cigarettes Per Day: 8 Years Smoked: 48 years e-Cigarette/Vaping Use: Never Used service: No Current occupational status: retired Sexual orientation: Unable to collect Gender identity: Unable to collect Cognitive needs: No Hearing needs: No Vision needs: No Review of Systems Const All systems reviewed & are unremarkable except as noted in HPI and below Physical Exam Vital Signs: Last Vital Signs Temp 99.0 F 06/20/23 08:25 Pulse 83 06/20/23 08:25 Resp 14 06/20/23 08:25 BP 130/70 06/20/23 08:25 Pulse Ox 94 06/20/23 08:25 Oxygen Delivery Method Room Air 06/20/23 08:25 BMI result Body Mass Index 39.9 Const Other: Awake alert NAD Sclera and conjunctiva clear bilat TM intact and clear bilat MMM, pharynx WNL RRR LS CTAB Assessment & Plan Assessment & Plan (1) Bronchitis: Comment: Advised to continue to use iulp-oce-[id number] cough suppressants, splint when coughing, encouraged to take deep breaths. Smokes cigars encouraged to stop. Code(s): J40 - Bronchitis, not specified as acute or chronic Plan: . Medications: New doxycycline hyclate 100 mg PO BID 14 caps 0RF 7 days Coding Level of Care Code Est Pt Level 3 (29605) Diagnoses Bronchitis J40
[2023-06-20 08:25] VITALS: BP 130/70; PULSE 83; RESP 14; TEMP 37.2; O2SAT 94; BMI 39.9
== END 2023-06-20 09:16 | disposition home or self-care (01) ==
PROVIDERS: PCP Family Medicine; Visit Provider Nurse Practitioner Family
DX: J40 Bronchitis, not specified as acute or chronic (principal)
CPT/HCPCS: 99213

== ENCOUNTER 2023-07-27 08:01 | Outpatient (AMB) | payer MEDICARE, SELFPAY ==
--- NOTE | 2023-07-27 08:12 | A.OFFPC_ITS ---
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 He?had?been?losing?some?weight?and?felt?this?was?unintentional.??However,?patien t?is?significan tly?overweight.??Eats?about?1?meal?per?day?but?makes?poor?choices?and?eats?large ?portion?sizes. Gained?back?weight.??No?concerns?for?unintentional?weight?loss. Encouraged?diet?exercise?and?intentional?weight?loss. Still?having?some?left?chest?wall?pain?at?the?site?of?his?pacer?placement.??Had? tried?diclofenac?gel?which?he?says?did?not?help. He?has?follow-up?with?Cardiology ON LICENSE OF [facility] Medical History NICM (nonischemic cardiomyopathy) Hypertension Pacemaker Family History Mother No problems noted. Father No problems noted. Social History Household Members: Family Housing: Other Housing Other:: Patient states he takes care of his mom. Alcohol intake: current Alcohol intake frequency: holidays/special occasions only Alcohol type: hard liquor Patient Tobacco Use Status: Current someday Tobacco user Tobacco use type: Cigar Cigarettes Per Day: 8 Years Smoked: 48 years e-Cigarette/Vaping Use: Never Used service: No Current occupational status: retired Sexual orientation: Unable to collect Gender identity: Unable to collect Cognitive needs: No Hearing needs: No Vision needs: No Questionnaire Thrive Questionnaire Date Thrive assessed: 06/21/22 AUDIT C Alcohol Use Questionnaire (AUDIT-C) 1. How often do you have a drink containing alcohol?: Monthly or less 2. How many drinks containing alcohol do you have on a typical day when you are drinking?: 3 or 4 3. How often do you have six or more drinks on one occasion?: Less than monthly Total Score: 3 JULIO-7 AMB Questionnaire JULIO-7 Date JULIO - 7 assessed: 05/25/23 Source: Developed by Drs. Anthony Melendez, Trini Dumont, Jose Alfredo Feliz and colleagues, with an educational jovanna from [employer]. Review of Systems Const Denies chills, Denies fatigue, Denies fever(s), Denies headache(s) and Denies weakness ENT Denies dizziness and Denies headache(s) Card Denies chest pain, Denies lightheadedness, Denies dyspnea and Denies other (Palpitations) Resp Denies cough, Denies dyspnea, Denies wheezing and Denies other ( shortness of breath) Musc Denies numbness and Denies tingling Neuro Denies dizziness, Denies headache(s), Denies numbness, Denies tingling, Denies paresthesias and Denies weakness Psych Denies anxiety and Denies depression Endo Denies fatigue Aller/Immun Denies wheezing Physical exam (Primary Care) Vital Signs: Last Vital Signs Pulse 66 07/27/23 08:20 Resp 14 07/27/23 08:20 BP 111/60 07/27/23 08:20 Pulse Ox 96 07/27/23 08:20 Oxygen Delivery Method Room Air 07/27/23 08:20 BMI result Body Mass Index 41.5 Tobacco/Smoking Status: Tobacco use Status Tobacco use date assessed 07/27/23 07/27/23 08:23 Patient Tobacco Use Status Current someday Tobacco 07/27/23 08:23 Tobacco use type Cigar 07/27/23 08:23 e-Cigarette/Vaping Use Never Used 07/27/23 08:23 Thrive Assessment: Date of Thrive Assessment Date Thrive assessed 06/21/22 07/27/23 08:23 Const General: no acute distress and well developed Nutritional Appearance: well nourished Orientation/consciousness: patient oriented x3 [facility] Head: Yes normocephalic and Yes atraumatic Eyes General: appearance normal, both eyes and all related structures Pupils: Equal, round and reactive pupils present EOM: EOMs intact bilaterally Chest Other: Pacer?at?left?upper?chest Resp Effort & Inspection: normal respiratory effort Auscultation: clear to auscultation bilaterally Cardio Rate: regular rate Rhythm: regular rhythm Heart sounds: S1 normal heart sound present, S2 normal heart sound present, no gallops, no murmurs and no rubs Neuro General: patient oriented x3 and gait normal Cranial nerves: Yes Equal, round and reactive pupils present Psych Affect: normal affect Assessment and Plan Assessment & Plan (1) Elevated fasting glucose: Code(s): R73.01 - Impaired fasting glucose Plan: A1c?in?May?was?5.6%.??Top?normal?range?and?he?has?had?elevated?fasting?bloo d?sugars. Encouraged?him?to?work?on?a?diet?lower?in?sugars?and?starches.??Encouraged?weigh t Patient?is?somewhat?precontemplative Will?continue?to?follow?his?blood?sugars (2) Hypertension: Code(s): I10 - Essential (primary) hypertension Plan: Blood?pressure?is?controlled.??Goal?is?less?than?130/80 Continue?current?medications Follow-up?with?Cardiology (3) Chest wall pain: Code(s): R07.89 - Other chest pain Plan: Chest?wall?pain?at?site?of?pacer?placement. He?has?an?upcoming?appointment?with?cardiology (4) Obesity: Code(s): E66.9 - Obesity, unspecified Plan: Encouraged?diet?exercise?and?weight?loss Coding Level of Care Code Est Pt Level 4 (96886) Diagnoses Elevated fasting glucose R73.01 Hypertension I10 Chest wall pain R07.89 Obesity E66.9
[2023-07-27 08:20] VITALS: BP 111/60; PULSE 66; RESP 14; O2SAT 96; BMI 41.5
== END 2023-07-27 08:59 | disposition home or self-care (01) ==
PROVIDERS: PCP Family Medicine; Visit Provider Family Medicine
DX: R73.01 Impaired fasting glucose (principal); E66.9 Obesity, unspecified; Z68.41 Body mass index [BMI] 40.0-44.9, adult; I10 Essential (primary) hypertension; R07.89 Other chest pain
CPT/HCPCS: 99214

== ENCOUNTER 2023-07-31 12:25 | Outpatient (AMB) | payer MEDICARE, SELFPAY ==
--- NOTE | 2023-08-01 11:45 | A.OFFVIS_ITS ---
Intake Intake Visit Reasons: 3 mth f/up Allergies No Known Allergies Allergy (Verified 07/27/23 08:13) [facility] Medical History NICM (nonischemic cardiomyopathy) Hypertension Pacemaker Family History Mother No problems noted. Father No problems noted. Social History Household Members: Family Housing: Other Housing Other:: Patient states he takes care of his mom. Alcohol intake: current Alcohol intake frequency: holidays/special occasions only Alcohol type: hard liquor Patient Tobacco Use Status: Current someday Tobacco user Tobacco use type: Cigar Cigarettes Per Day: 8 Years Smoked: 48 years e-Cigarette/Vaping Use: Never Used service: No Current occupational status: retired Sexual orientation: Unable to collect Gender identity: Unable to collect Cognitive needs: No Hearing needs: No Vision needs: No Office Procedures Cardiac Device Check Cardiac Device Check Details: Medtronic Bi V ICD interrogation battery 12 months, DDDR mode, low rate 60, RA threshold 0.75 volts at 0.4 milliseconds, RV threshold 0.75 volts at 0.4 millis econds, LV threshold 0.75 volts at 0.4 milliseconds, V paced 96.1%, a paced 73%, OptiVol elevated but trending down. 70764-PP Cardiac Device Check, multi lead implantable defibrillator Procedure code (CPT) selection complete Assessment & Plan Assessment & Plan (1) Cardiac defibrillator in place: Code(s): Z95.810 - Presence of automatic (implantable) cardiac defibrillator Plan: Office interrogation today Coding Level of Care Code Procedure Only Diagnoses Cardiac defibrillator in place Z95.810 CPT Codes Cardiac Device Check - Cardiac Device 6: 31439-VH Cardiac Device Check, multi lead implantable defibrillator ([id number])
== END 2023-07-31 13:35 | disposition home or self-care (01) ==
PROVIDERS: PCP Family Medicine; Visit Provider Nurse Practitioner Family
DX: Z45.02 Encounter for adjustment and management of automatic implantable cardiac defibrillator (principal)
CPT/HCPCS: 93284

== ENCOUNTER → 2023-07-31 12:25 | Outpatient (BNVA) | payer OTHER, SELFPAY | PROVIDERS: PCP Family Medicine; Visit Provider Nurse Practitioner Family ==

== ENCOUNTER 2023-11-02 08:20 | Outpatient (AMB) | payer MEDICARE, SELFPAY ==
[2023-11-02 08:25] VITALS: BP 118/66; PULSE 88; RESP 13; O2SAT 94; BMI 41.3
--- NOTE | 2023-11-02 08:25 | MHC.PC.OV ---
Vital Signs 11/02/23 08:25 Height 5 ft 11 in Weight 296 lb BMI 41.3 BP 118/66 Blood Pressure Location Lt brachial Position Sitting Respiration 13 Pulse 88 Pulse Source Pulse Oximeter Pulse Oximetry (%) 94 Oxygen Delivery Method Room Air Intake Visit Reasons: f/u ELEV FBS Intake Note: Patient is here to follow up for elevated blood sugar. Patient reports he hasn't taken atorvastatin in 2 months but has recently just started taking it again due to finally being able to receive it. Patient reports he did not get the chest xray done yet. Medical Director Required: No Allergies No Known Allergies Allergy (Verified 11/02/23 08:35) Medication List - Last Reconciled 11/02/23 by Norbert Fleming MD atorvastatin 80 mg PO BEDTIME 90 days carvedilol 12.5 mg PO BID diclofenac sodium 1% 4 grams topical BID PRN 30 days hydrochlorothiazide 12.5 mg PO DAILY lisinopril 10 mg PO DAILY torsemide 20 mg PO DAILY 30 days Tobacco use date assessed: 07/27/23 Fall risk assessment: No Falls in past year Last assessed Fall Risk: 11/02/23 Dental Screening Dental Screen Date: 07/27/23 HPI f/u ELEV FBS HPI Details Patient?presents?to?follow-up?hypertension?and?elevated?fasting?blood?sugars. Taking?blood?pressure?medication?as?prescribed A1c?today?has?risen?to?6.3%. Patient?is?still?frustrated?regarding?pacer?leads?and?pacemaker?placement. Recent?interrogation?of?pacer?was?fine Had?ordered?a?chest?x-ray?as?patient?has?longstanding?history?of?smoking,?mostly?cigars. Has?lost?a?lb?since?last?visit.??Patient?notes?that?he?used?to?be?about?100?lb?heavier. [facility] Medical History NICM (nonischemic cardiomyopathy) Hypertension Pacemaker Family History Mother No problems noted. Father No problems noted. Social History Household Members: Family Housing: Other Housing Other:: Patient states he takes care of his mom. Alcohol intake: current Alcohol intake frequency: holidays/special occasions only Alcohol type: hard liquor Patient Tobacco Use Status: Current someday Tobacco user Tobacco use type: Cigar Cigarettes Per Day: 8 Years Smoked: 48 years e-Cigarette/Vaping Use: Never Used service: No Current occupational status: retired Sexual orientation: Unable to collect Gender identity: Unable to collect Cognitive needs: No Hearing needs: No Vision needs: No Questionnaire Thrive Questionnaire Date Thrive assessed: 06/21/22 JULIO-7 AMB Questionnaire JULIO-7 Date JULIO - 7 assessed: 05/25/23 Source: Developed by Drs. Anthony Melendez, Trini Dumont, Jose Alfredo Feliz and colleagues, with an educational jovanna from [employer]. Review of Systems Const Denies chills, Denies fatigue, Denies fever(s), Denies headache(s) and Denies weakness ENT Denies dizziness and Denies headache(s) Card Denies dyspnea Resp Denies cough, Denies dyspnea, Denies wheezing and Denies other (shortness of breath) Musc Denies numbness and Denies tingling Neuro Denies dizziness, Denies headache(s), Denies numbness, Denies tingling and Denies weakness Psych Denies anxiety and Denies depression Endo Denies fatigue Aller/Immun Denies wheezing Physical exam (Primary Care) Vital Signs: Last Vital Signs Pulse 88 11/02/23 08:25 Resp 13 11/02/23 08:25 BP 118/66 11/02/23 08:25 Pulse Ox 94 11/02/23 08:25 Oxygen Delivery Method Room Air 11/02/23 08:25 BMI result Body Mass Index 41.3 Tobacco/Smoking Status: Tobacco use Status Tobacco use date assessed 07/27/23 11/02/23 08:31 Patient Tobacco Use Status Current someday Tobacco 11/02/23 08:31 Tobacco use type Cigar 11/02/23 08:31 e-Cigarette/Vaping Use Never Used 11/02/23 08:31 Thrive Assessment: Date of Thrive Assessment Date Thrive assessed 06/21/22 11/02/23 08:31 Const General: well developed; No acute distress Nutritional Appearance: well nourished Orientation/consciousness: patient oriented x3 HENMT Head: Yes normocephalic and Yes atraumatic Eyes General: appearance normal, both eyes and all related structures Pupils: Equal, round and reactive pupils present EOM: EOMs intact bilaterally Resp Effort & Inspection: normal respiratory effort Neuro General: patient oriented x3 and gait normal Cranial nerves: Yes Equal, round and reactive pupils present Psych Affect: normal affect Assessment and Plan Assessment & Plan (1) Hypertension: Code(s): I10 - Essential (primary) hypertension Plan: Told.??Goal?is?less?than?130/80 Continue?current?medication?regimen (2) Prediabetes: Code(s): R73.03 - Prediabetes Plan: A1c?now?in?pre?diabetes?range?at?6.3%. Encouraged?a?diet?lower?in?sugars?and?starches.??Encouraged?weight?loss?and?exercise (3) Smoker: Code(s): F17.200 - Nicotine dependence, unspecified, uncomplicated Plan: Encouraged?cessation Patient?has?outstanding?chest?x-ray?and?he?says?he?will?try?to?remember?to?get?this?done?prior?to?next?visit. (4) Cardiac defibrillator in place: Code(s): Z95.810 - Presence of automatic (implantable) cardiac defibrillator Plan: Recent?interrogation?was?okay. He?is?still?frustrated?with?the?placement?and?anticipates?revision?with?lead?replacement?in?about?11?months. Coding Level of Care Code Est Pt Level 4 (54042) Diagnoses Hypertension I10 Prediabetes R73.03 Smoker F17.[address] Z95.810
== END 2023-11-02 09:18 | disposition home or self-care (01) ==
PROVIDERS: PCP Family Medicine; Visit Provider Family Medicine
DX: I10 Essential (primary) hypertension (principal); R73.03 Prediabetes; F17.200 Nicotine dependence, unspecified, uncomplicated; Z95.810 Presence of automatic (implantable) cardiac defibrillator
CPT/HCPCS: 99214

== ENCOUNTER 2024-02-06 12:43 | Outpatient (AMB) | payer MEDICARE, SELFPAY ==
[2024-02-06 13:28] VITALS: BP 118/62; PULSE 66; BMI 40.3
--- NOTE | 2024-02-06 13:28 | A.OFFVIS_ITS ---
Vital Signs 02/06/24 13:28 Height 5 ft 11 in Weight 288 lb 12.889 oz BMI 40.3 BP 118/62 Blood Pressure Location Lt brachial Position Sitting Pulse 66 Pulse Source Pulse Oximeter Intake Visit Reasons: 6m follow up device ck Care Process Manager Required: No Instructor Decorating: Instructor Decorating Present Allergies No Known Allergies Allergy (Verified 02/06/24 13:29) Medication List - Last Reconciled 02/06/24 by Rosalia Melissa NP-C atorvastatin 80 mg PO BEDTIME 90 days carvedilol 12.5 mg PO BID hydrochlorothiazide 12.5 mg PO DAILY lisinopril 10 mg PO DAILY omeprazole 20 mg PO DAILY 90 days torsemide 20 mg PO DAILY 30 days HPI HPI 6m follow up device ck: Details: Stanley is a 63-year-old male past medical history of hypertension, hyperlipidemia, pre diabetes, morbid obesity, nonischemic cardiomyopathy, left bundle branch block, pacemaker who presents for follow-up. Today he reports that he has been doing generally well since his last visit in the office 07/04/2022. He gets brief random pains in his chest. No chest discomfort brought on by physical activity. He has some minor discomfort at his pacemaker site and says that he can move the device around in the skin. No concerning shortness of breath, PND, orthopnea or edema. He will get some lightheadedness if bending over then standing up. He describes 1 episode a few months ago where he fell down. No heart palpitations, presyncope, syncope. Takes all meds as directed. Does not want remote monitoring for his device. Significant other is present. [facility], [facility] Medical History NICM (nonischemic cardiomyopathy) Hypertension Pacemaker Family History Mother No problems noted. Father No problems noted. Social History Household Members: Family Housing: Other Housing Other:: Patient states he takes care of his mom. Alcohol intake: current Alcohol intake frequency: holidays/special occasions only Alcohol type: hard liquor Patient Tobacco Use Status: Current someday Tobacco user Tobacco use type: Cigar Cigarettes Per Day: 8 Years Smoked: 48 years e-Cigarette/Vaping Use: Never Used service: No Current occupational status: retired Sexual orientation: Unable to collect Gender identity: Unable to collect Cognitive needs: No Hearing needs: No Vision needs: No Review of Systems Const All systems reviewed & are unremarkable except as noted in HPI and below ENT Reports dizziness Card Reports chest pain (random fleeting discomfort), Denies chest pain at rest, Denies chest pain with activity, Denies rapid heart rate, Denies pedal edema, Denies edema, Denies leg edema, Denies lightheadedness, Denies palpitations, Denies dyspnea, Denies dyspnea on exertion and Denies orthopnea Resp Denies cough, Denies dyspnea and Denies dyspnea on exertion GI Denies hematochezia and Denies change in stool character Musc Denies abnormal gait, Denies limited range of motion, Denies muscle cramps, Denies muscle weakness, Denies numbness, Denies radiating pain into limb, Denies stiffness and Denies tingling Neuro Denies abnormal gait, Reports dizziness, Denies numbness and Denies tingling Endo Denies palpitations Physical Exam Vital Signs: Last Vital Signs Pulse 66 02/06/24 13:28 BP 118/62 02/06/24 13:28 BMI result Body Mass Index 40.3 Const General: cooperative, healthy appearing, comfortable and no acute distress Nutritional Appearance: well nourished Orientation/consciousness: patient oriented x3 HEENT Head: Yes normocephalic and Yes atraumatic Eyes General: appearance normal, both eyes and all related structures Pupils: Equal, round and reactive pupils present EOM: EOMs intact bilaterally Neck Neck: Yes normal visual inspection and Yes no JVD Resp Effort & Inspection: normal respiratory effort Auscultation: clear to auscultation bilaterally, no rales, no rhonchi and no wheezes Cardio Jugular venous distension: no JVD Rate: regular rate Rhythm: regular rhythm Heart sounds: S1 normal heart sound present, S2 normal heart sound present, no murmurs and no rubs Neuro General: patient oriented x3 Cranial nerves: Yes Equal, round and reactive pupils present Extrem General: Yes normal to inspection and No no pedal edema Psych Appearance: grossly normal Mental Status: mental status grossly normal Speech and movement: Normal speech and movement present Affect: normal affect Office Procedures Cardiac Device Check Cardiac Device Check Details: Medtronic Bi V ICD interrogation today shows battery 7 months, DDDR mode, low rate 60, atrial threshold 0.75 volts at 0.4 milliseconds, RV threshold 0.625 volts at 0.4 milliseconds, LV threshold 0.625 volts at 0.4 milliseconds, therapies reviewed, no VT or VF, no 80/AF, V paced 96.3%, no events 92704-HO Cardiac Device Check, multi lead implantable defibrillator Procedure code (CPT) selection complete EKG Details: Today, read by me, ventricular paced, can not exclude atrial paced rhythm, rate 66, can not exclude prior anterior infarct 12601-[id number], Complete Assessment & Plan Assessment & Plan (1) NICM (nonischemic cardiomyopathy): Code(s): I42.8 - Other cardiomyopathies Category: Medical Plan: History of nonischemic cardiomyopathy. Was previously followed by [facility] cardiology and switch to this office in 2022. 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 Last echocardiogram 01/18/2023 showed EF 45-50%, limited visualization of the valves with normal Dopplers. He has been on carvedilol and lisinopril for neurohormonal modulation. On exam today he does not appear fluid overloaded. He continues on torsemide daily. His med list also includes hydrochlorothiazide. He does not want to make any medicine changes as he says this is working for him. Last labs in our system 05/18/2023 showed potassium 3.7, creatinine 0.86. Recommended he update labs in the near future. No med changes made today. Signs and symptoms of heart failure reviewed with him. (2) Cardiac defibrillator in place: Code(s): Z95.810 - Presence of automatic (implantable) cardiac defibrillator Category: Medical Plan: Medtronic Bi V ICD in place. Interrogation today shows device is functioning normally. Battery 7 months. Will arrange for an office interrogation in 5 months. He does not have remote monitoring and tells me he does not believe in it. He would like Dr. Barcenas to change his device when the time comes. (3) Hypertension: Code(s): I10 - Essential (primary) hypertension Category: Medical Plan: Well controlled at this time. No medication changes made. (4) Hyperlipidemia: Code(s): E78.5 - Hyperlipidemia, unspecified Category: Medical Plan: [place] LDL 100. No known history of CAD. He is on atorvastatin 80 mg daily. Labs done 05/18/2023 showed LDL 75. Plan Time spent on chart review, documentation, interview and assessment Coding Level of Care Code Est Pt Level 4 (20793) Complex EM visit Add On G2211 Diagnoses NICM (nonischemic cardiomyopathy) I42.[address] Z95.810 Hypertension I10 Hyperlipidemia E78.5 CPT Codes Cardiac Device Check - Cardiac Device 6: 22299-JP Cardiac Device Check, multi lead implantable defibrillator ([id number]) EKG - CPT: 14689-Fleiknhgqpooxawek, Complete ([id number]) Time Spent (min) 36
== END 2024-02-06 14:08 | disposition home or self-care (01) ==
PROVIDERS: PCP Family Medicine; Visit Provider Nurse Practitioner Family
DX: I42.8 Other cardiomyopathies (principal); Z95.810 Presence of automatic (implantable) cardiac defibrillator; I10 Essential (primary) hypertension; E78.5 Hyperlipidemia, unspecified
CPT/HCPCS: 93010; 93284; 99214

== ENCOUNTER → 2024-02-06 12:43 | Outpatient (BNVA) | payer MEDICARE, SELFPAY | PROVIDERS: PCP Family Medicine; Visit Provider Nurse Practitioner Family | DX: I42.8 Other cardiomyopathies (principal); I10 Essential (primary) hypertension; Z95.810 Presence of automatic (implantable) cardiac defibrillator | CPT/HCPCS: 93005; 99212 ==

== ENCOUNTER 2024-04-22 11:10 | Outpatient (REF) | payer MEDICARE, SELFPAY ==
[2024-04-22 14:45] LABS: Estimated Average Glucose 123 mg/dL; Hemoglobin A1C 148.2575 umol/L; Hemoglobin A1c % 5.9 % (<6.0); Total Hemoglobin (HGBA1C) 3644.5602 umol/L
[2024-04-22 14:57] LABS: Alanine Aminotransferase 24 U/L (0-40); Albumin Level 4.1 g/dL (3.5-5.0); Alkaline Phosphatase 99 U/L (39-117); Anion Gap 9 (12-20); Aspartate Amino Transferase 23 U/L (5-37); Bilirubin Total 0.7 mg/dL (0.0-1.0); Blood Urea Nitrogen 20 mg/dL (9-16); Calcium 9.5 mg/dL (8.4-10.2); Carbon Dioxide 34 mmol/L (22-29); Chloride 104 mmol/L (96-108); Estimated Glomerular Filt Rate > 60; Glucose Fasting 122 mg/dL (60-99); Potassium 3.7 mmol/L (3.3-5.1); Sodium 143 mmol/L (135-145); Total Protein 6.6 g/dL (6.5-8.0)
[2024-04-22 15:01] LABS: Creatinine Urine 37.75 mg/dL; Microalbumin Urine < 5.0 mg/L
== END 2024-04-22 11:11 | disposition home or self-care (01) ==
LOC: HO.WFDLDS 11:10
PROVIDERS: Visit Provider Family Medicine
DX: Z00.00 Encounter for general adult medical examination without abnormal findings (principal); R73.01 Impaired fasting glucose; R73.03 Prediabetes; I10 Essential (primary) hypertension
CPT/HCPCS: 36415; 80053; 82043; 82570; 83036

== ENCOUNTER 2024-04-23 08:57 | Outpatient (AMB) | payer MEDICARE, SELFPAY ==
--- NOTE | 2024-04-23 09:26 | A.OFFPC_ITS ---
Vital Signs 04/23/24 09:43 Height 5 ft 11 in Weight 292 lb 6 oz BMI 40.8 BP 87/54 L Blood Pressure Location Rt brachial Position Left Lateral Respiration 14 Pulse 65 Pulse Source Pulse Oximeter Temp 98.4 F Temp Source Oral Pulse Oximetry (%) 95 Oxygen Delivery Method Room Air Intake Visit Reasons: Rsched 03/04 Elevated BP - PRE-DIABETES Intake Note: elevated b/p and pre-dm Allergies No Known Allergies Allergy (Verified 04/23/24 09:29) Tobacco use date assessed: 07/27/23 Dental Screening Dental Screen Date: 07/27/23 HPI Rsched 03/04 Elevated BP - PRE-DIABETES HPI Details 63 y/o male presents to f/u elevated BP, pre-diabetes. Blood pressure today 87/54. He is on lisinopril 10mg, HCTZ 12.5mg, carvedilol 12.5mg b.i.d. He notes blood pressure at home have been in the mid 110s. Reports ongoing back pain. [facility] Medical History NICM (nonischemic cardiomyopathy) Hypertension Pacemaker Family History Mother No problems noted. Father No problems noted. Social History Household Members: Family Housing: Other Housing Other:: Patient states he takes care of his mom. Alcohol intake: current Alcohol intake frequency: holidays/special occasions only Alcohol type: hard liquor Patient Tobacco Use Status: Current someday Tobacco user Tobacco use type: Cigar Cigarettes Per Day: 8 Years Smoked: 48 years Packs per year/per ci.00 e-Cigarette/Vaping Use: Never Used service: No Current occupational status: retired Sexual orientation: Unable to collect Gender identity: Unable to collect Cognitive needs: No Hearing needs: No Vision needs: No Questionnaire PHQ-9 Over the last 2 weeks, how often have you been bothered by any of the following problems? 1. Little interest or pleasure in doing things: not at all 2. Feeling down, depressed, or hopeless: not at all 3. Trouble falling or staying asleep, or sleeping too much: not at all 4. Feeling tired or having little energy: not at all 5. Poor appetite or overeating: not at all 6. Feeling bad about yourself - or that you are a failure or have let yourself or your family down: not at all 7. Trouble concentrating on things, such as reading the newspaper or watching television: not at all 8. Moving or speaking so slowly that other people could have noticed. Or the opposite - being so fidgety or restless that you have been moving around a lot more than usual: not at all 9. Thoughts that you would be better off or of hurting yourself in some way: not at all Total score: 0 Source: Developed by Drs. Anthony Melendez, Trini Dumont, Jose Alfredo Feliz and colleagues, with an educational jovanna from [employer]. Thrive Questionnaire Date Thrive assessed: 06/21/22 I am a: Patient What is your living situation today?: I have a steady place to live Within the past 12 months, did the food you bought not last and you didn't have the money to get more?: Never true Within the past 12 months, did you worry whether your food would run out before you got money to buy more?: Never true Do you have trouble paying for medicines?: No Do you have trouble getting transportation to medical appointments?: No Do you have trouble paying your heating and electricity bill?: No Do you have trouble taking care of your child, family member or friend?: No Do you have trouble with day-to-day activities such as bathing, preparing meals, shopping, managing finances, etc.?: No Are you currently unemployed and looking for a job?: No Are you interested in more education?: No Please select the resources that you would like help with: None Currently or been in a relationship where the following occur: I choose not to answer THRIVE Score: 0 AUDIT C Alcohol Use Questionnaire (AUDIT-C) 1. How often do you have a drink containing alcohol?: Never Total Score: 0 JULIO-7 AMB Questionnaire JULIO-7 Date JULIO - 7 assessed: 05/25/23 Feeling nervous, anxious, or on edge: 0 = Not at all Not being able to stop or control worryin = Not at all Worrying too much about different things: 0 = Not at all Trouble relaxin = Not at all Being so restless that it is hard to sit still: 0 = Not at all Becoming easily annoyed or irritable: 0 = Not at all Feeling afraid as if something awful might happen: 0 = Not at all Total JULIO-7 score (0-4 normal; 5-9 mild; 10-14 moderate; 15-21 severe): 0 Source: Developed by Drs. Anthony Melendez, Trini Dumont, Jose Alfredo Feliz and colleagues, with an educational jovanna from [employer]. Review of Systems Const Denies chills, Denies fatigue, Denies fever(s), Denies headache(s) and Denies weakness ENT Denies dizziness and Denies headache(s) Card Denies chest pain, Denies lightheadedness, Denies dyspnea and Denies other (Palpitations) Resp Denies cough, Denies dyspnea, Denies wheezing and Denies other ( shortness of breath) Musc Reports back pain, Denies numbness and Denies tingling Neuro Denies dizziness, Denies headache(s), Denies numbness, Denies tingling, Denies paresthesias and Denies weakness Psych Denies anxiety and Denies depression Endo Denies fatigue Aller/Immun Denies wheezing Physical exam (Primary Care) Vital Signs: Last Vital Signs Temp 98.4 F 04/23/24 09:43 Pulse 65 04/23/24 09:43 Resp 14 04/23/24 09:43 BP 87/54 L 04/23/24 09:43 Pulse Ox 95 04/23/24 09:43 Oxygen Delivery Method Room Air 04/23/24 09:43 BMI result Body Mass Index 40.8 Tobacco/Smoking Status: Tobacco use Status Tobacco use date assessed 07/27/23 04/23/24 09:45 Patient Tobacco Use Status Current someday Tobacco 04/23/24 09:45 Tobacco use type Cigar 04/23/24 09:45 e-Cigarette/Vaping Use Never Used 04/23/24 09:45 PHQ-9: PHQ-9 Score PHQ-9: Total score 0 04/23/24 10:06 Thrive Assessment: Date of Thrive Assessment Date Thrive assessed 06/21/22 04/23/24 09:45 Currently or been in a relationship where the following occur: I choose not to answer Const General: no acute distress and well developed Nutritional Appearance: well nourished Orientation/consciousness: patient oriented x3 HENMT Head: Yes normocephalic and Yes atraumatic Eyes General: appearance normal, both eyes and all related structures Pupils: Equal, round and reactive pupils present EOM: EOMs intact bilaterally Resp Effort & Inspection: normal respiratory effort Auscultation: clear to auscultation bilaterally Cardio Rate: regular rate Rhythm: regular rhythm Heart sounds: S1 normal heart sound present, S2 normal heart sound present, no gallops, no murmurs and no rubs Neuro General: patient oriented x3 and gait normal Cranial nerves: Yes Equal, round and reactive pupils present Psych Affect: normal affect Coding Level of Care Code Est Pt Level 4 (08503) Diagnoses Prediabetes R73.03 Hypertension I10 Back pain M54.9 Pacemaker Z95.0 Assessment & Plan Assessment & Plan (1) Prediabetes: Code(s): R73.03 - Prediabetes Category: Medical Plan: A1c?5.9%.??Pre?diabetes?range Continue?working?at?a?diet?low?in?sugars?and?starches (2) Hypertension: Code(s): I10 - Essential (primary) hypertension Category: Medical Plan: Blood?pressure?is?too?low Patient?says?that?his?girlfriend?has?been?working?with?him?to?significantly?decr ease?his?salt/sodium?in?diet Will?have?him?discontinue?hydrochlorothiazide.? ?His?girlfriend?can?check?his?blood?pressures?and?can?resume?this?medicine?if?bl ood?pressure?greater?than?130/80 or?he?has?significant?lower?extremity?edema?or?other?problem. He?will?call?to?let?me?know?if?this?is?the?case (3) Back pain: Code(s): M54.9 - Dorsalgia, unspecified Category: Medical Plan: Chronic?back?pain?which?patient?attributes?to?an?old?accident. Offer?physical?therapy?but?patient?declines?at?this?time.??We?had?a?long?convers ation?about?how?therapy?might?help. He?can?let?me?know?if?changes?his?mind (4) Pacemaker: Code(s): Z95.0 - Presence of cardiac pacemaker Category: Medical Plan: Followed?by?cardiology?and?has?an?appointment?coming?out?to?discuss?battery?life .
[2024-04-23 09:43] VITALS: BP 87/54; PULSE 65; RESP 14; TEMP 36.9; O2SAT 95; BMI 40.8
== END 2024-04-23 10:29 | disposition home or self-care (01) ==
PROVIDERS: PCP Family Medicine; Visit Provider Family Medicine
DX: R73.03 Prediabetes (principal); I10 Essential (primary) hypertension; M54.9 Dorsalgia, unspecified; Z95.0 Presence of cardiac pacemaker

== ENCOUNTER → 2024-04-23 08:57 | Outpatient (BNVA) | payer MEDICARE, SELFPAY | PROVIDERS: PCP Family Medicine; Visit Provider Family Medicine | DX: R73.03 Prediabetes (principal); I10 Essential (primary) hypertension; M54.9 Dorsalgia, unspecified; Z95.0 Presence of cardiac pacemaker | CPT/HCPCS: 96127; 99212 ==

== ENCOUNTER 2024-04-26 08:01 | Outpatient (AMB) | payer MEDICARE, SELFPAY ==
--- NOTE | 2024-04-26 12:19 | MHC.OFFVIS ---
Intake Visit Reasons: Metronic device ck per DC Allergies No Known Allergies Allergy (Verified 04/23/24 09:29) PFSH Medical History NICM (nonischemic cardiomyopathy) Hypertension Pacemaker Family History Mother No problems noted. Father No problems noted. Social History Household Members: Family Housing: Other Housing Other:: Patient states he takes care of his mom. Alcohol intake: current Alcohol intake frequency: holidays/special occasions only Alcohol type: hard liquor Patient Tobacco Use Status: Current someday Tobacco user Tobacco use type: Cigar Cigarettes Per Day: 8 Years Smoked: 48 years e-Cigarette/Vaping Use: Never Used service: No Current occupational status: retired Sexual orientation: Unable to collect Gender identity: Unable to collect Cognitive needs: No Hearing needs: No Vision needs: No Office Procedures Cardiac Device Check Cardiac Device Check Details: Medtronic Bi V ICD interrogation today shows battery 4 months, DDDR mode, low rate 60, atrial threshold 0.75 volts at 0.4 milliseconds, RV threshold 0.625 volts at 0.4 milliseconds, LV threshold 0.625 volts at 0.4 milliseconds, V paced 95.9%, no VT or VF, no therapies [id number] Cardiac Device Check, multi lead implantable defibrillator Procedure code (CPT) selection complete Assessment & Plan Assessment & Plan (1) Cardiac defibrillator in place: Code(s): Z95.810 - Presence of automatic (implantable) cardiac defibrillator Category: Medical Plan: device/ battery check Coding Level of Care Code Procedure Only Diagnoses Cardiac defibrillator in place Z95.810 CPT Codes Cardiac Device Check - Cardiac Device 6: 88349-VD Cardiac Device Check, multi lead implantable defibrillator ([id number])
== END 2024-04-26 08:42 | disposition home or self-care (01) ==
PROVIDERS: PCP Family Medicine; Visit Provider Nurse Practitioner Family
DX: Z45.02 Encounter for adjustment and management of automatic implantable cardiac defibrillator (principal)
CPT/HCPCS: 93284

== ENCOUNTER → 2024-04-26 08:01 | Outpatient (BNVA) | payer MEDICARE, SELFPAY | PROVIDERS: PCP Family Medicine; Visit Provider Nurse Practitioner Family ==

== ENCOUNTER 2024-06-06 11:43 | Outpatient (AMB) | payer MEDICARE, SELFPAY ==
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
[2024-06-06 12:01] VITALS: BP 110/60; PULSE 62; RESP 14; TEMP 36.5; O2SAT 94; BMI 41.3
== END 2024-06-06 12:39 | disposition home or self-care (01) ==
PROVIDERS: PCP Family Medicine; Visit Provider Family Medicine
DX: I10 Essential (primary) hypertension (principal); M54.16 Radiculopathy, lumbar region; M79.604 Pain in right leg; M79.605 Pain in left leg; R29.898 Other symptoms and signs involving the musculoskeletal system

== ENCOUNTER → 2024-06-06 11:43 | Outpatient (BNVA) | payer MEDICARE, SELFPAY | PROVIDERS: PCP Family Medicine; Visit Provider Family Medicine | DX: I10 Essential (primary) hypertension (principal); M54.16 Radiculopathy, lumbar region; M79.604 Pain in right leg; M79.605 Pain in left leg; R29.898 Other symptoms and signs involving the musculoskeletal system | CPT/HCPCS: 99212 ==

== ENCOUNTER 2024-07-01 12:52 | Outpatient (AMB) | payer MEDICARE, SELFPAY ==
--- NOTE | 2024-07-01 18:17 | A.OFFVIS_ITS ---
Intake Visit Reasons: near [place] Allergies No Known Allergies Allergy (Verified 06/06/24 12:00) FORMERLY [facility] Medical History NICM (nonischemic cardiomyopathy) Hypertension Pacemaker Family History Mother No problems noted. Father No problems noted. Social History Household Members: Family Housing: Other Housing Other:: Patient states he takes care of his mom. Alcohol intake: current Alcohol intake frequency: holidays/special occasions only Alcohol type: hard liquor Patient Tobacco Use Status: Current someday Tobacco user Tobacco use type: Cigar Cigarettes Per Day: 8 Years Smoked: 48 years e-Cigarette/Vaping Use: Never Used service: No Current occupational status: retired Sexual orientation: Unable to collect Gender identity: Unable to collect Cognitive needs: No Hearing needs: No Vision needs: No Office Procedures Cardiac Device Check Cardiac Device Check Details: Medtronic device check today, battery 2 months, DDD R mode, low rate 60, atrial threshold 0.75 volts at 0.4 milliseconds, RV threshold 0.625 volts at 0.4 milliseconds, LV threshold 0.625 volts at 0.4 milliseconds, no alerts, total V paced 96.2%. 10935-HN Cardiac Device Check, multi lead implantable defibrillator Procedure code (CPT) selection complete Assessment & Plan Assessment & Plan (1) NICM (nonischemic cardiomyopathy): Code(s): I42.8 - Other cardiomyopathies Category: Medical Plan: Bi V ICD interrogation. Battery check. Does not use remote monitoring. Coding Level of Care Code Procedure Only Diagnoses NICM (nonischemic cardiomyopathy) I42.8 CPT Codes Cardiac Device Check - Cardiac Device 6: 24240-US Cardiac Device Check, multi lead implantable defibrillator ([id number])
== END 2024-07-01 13:37 | disposition home or self-care (01) ==
PROVIDERS: PCP Family Medicine; Visit Provider Nurse Practitioner Family
DX: I42.8 Other cardiomyopathies (principal); Z95.810 Presence of automatic (implantable) cardiac defibrillator
CPT/HCPCS: 93284

== ENCOUNTER → 2024-07-01 12:52 | Outpatient (BNVA) | payer MEDICARE, SELFPAY | PROVIDERS: PCP Family Medicine; Visit Provider Nurse Practitioner Family ==

== ENCOUNTER 2024-07-15 09:36 | Outpatient (AMB) | payer MEDICARE, SELFPAY ==
--- NOTE | 2024-07-15 10:12 | A.OFFPC_ITS ---
Vital Signs 07/15/24 10:16 Height 5 ft 11 in Weight 291 lb 4 oz BMI 40.6 BP 104/58 L Blood Pressure Location Rt brachial Position Sitting Respiration 16 Pulse 65 Pulse Source Pulse Oximeter Temp 98.4 F Temp Source Oral Pulse Oximetry (%) 98 Oxygen Delivery Method Room Air Intake Visit Reasons: f/u back pain, LE weakness Intake Note: follow up on back pain and bilateral leg weakness [employer] Required: No Allergies No Known Allergies Allergy (Verified 07/15/24 10:14) Medication List - Last Reconciled 07/15/24 by Norbert Fleming MD atorvastatin 80 mg PO BEDTIME 90 days carvedilol 12.5 mg PO BID gabapentin 300 mg PO Q12H 30 days lisinopril 10 mg PO DAILY omeprazole 20 mg PO DAILY 90 days torsemide 20 mg PO DAILY 30 days Tobacco use date assessed: 07/27/23 Dental Screening Dental Screen Date: 07/27/23 HPI f/u back pain, LE weakness HPI Details 63 y/o male presents to f/u back pain, L E weakness. Trialing gabapentin, NSAIDs. Had given him an order for physical therapy. Had also ordered an x-ray. He notes he has been taking gabapentin. [facility] Medical History NICM (nonischemic cardiomyopathy) Hypertension Pacemaker Family History Mother No problems noted. Father No problems noted. Social History Household Members: Family Housing: Other Housing Other:: Patient states he takes care of his mom. Alcohol intake: current Alcohol intake frequency: holidays/special occasions only Alcohol type: hard liquor Patient Tobacco Use Status: Current someday Tobacco user Tobacco use type: Cigar Cigarettes Per Day: 8 Years Smoked: 48 years e-Cigarette/Vaping Use: Never Used service: No Current occupational status: retired Sexual orientation: Unable to collect Gender identity: Unable to collect Cognitive needs: No Hearing needs: No Vision needs: No Questionnaire PHQ-9 Over the last 2 weeks, how often have you been bothered by any of the following problems? 2. Feeling down, depressed, or hopeless: not at all 3. Trouble falling or staying asleep, or sleeping too much: not at all 4. Feeling tired or having little energy: not at all 5. Poor appetite or overeating: not at all 6. Feeling bad about yourself - or that you are a failure or have let yourself or your family down: not at all 7. Trouble concentrating on things, such as reading the newspaper or watching television: not at all 8. Moving or speaking so slowly that other people could have noticed. Or the opposite - being so fidgety or restless that you have been moving around a lot more than usual: not at all 9. Thoughts that you would be better off or of hurting yourself in some way: not at all Source: Developed by Drs. Anthony Melendez, Trini Dumont, Jose Alfredo Feliz and colleagues, with an educational jovanna from [employer]. Thrive Questionnaire Date Thrive assessed: 06/06/24 I am a: Patient What is your living situation today?: I have a steady place to live Within the past 12 months, did the food you bought not last and you didn't have the money to get more?: Never true Within the past 12 months, did you worry whether your food would run out before you got money to buy more?: Never true Do you have trouble paying for medicines?: No Do you have trouble getting transportation to medical appointments?: No Do you have trouble paying your heating and electricity bill?: No Do you have trouble taking care of your child, family member or friend?: No Do you have trouble with day-to-day activities such as bathing, preparing meals, shopping, managing finances, etc.?: No Are you currently unemployed and looking for a job?: No Are you interested in more education?: No Please select the resources that you would like help with: None Currently or been in a relationship where the following occur: I choose not to answer THRIVE Score: 0 JULIO-7 AMB Questionnaire JULIO-7 Date JULIO - 7 assessed: 05/25/23 Source: Developed by Drs. Anthony Melendez, Trini Dumont, Jose Alfredo Feliz and colleagues, with an educational jovanna from [employer]. Review of Systems Const Denies chills, Denies fatigue, Denies fever(s), Denies headache(s) and Denies weakness ENT Denies dizziness and Denies headache(s) Card Denies dyspnea Resp Denies cough, Denies dyspnea, Denies wheezing and Denies other (shortness of breath) Musc Denies numbness and Denies tingling Neuro Denies dizziness, Denies headache(s), Denies numbness, Denies tingling and Denies weakness Psych Denies anxiety and Denies depression Endo Denies fatigue Aller/Immun Denies wheezing Physical exam (Primary Care) Vital Signs: Last Vital Signs Temp 98.4 F 07/15/24 10:16 Pulse 65 07/15/24 10:16 Resp 16 07/15/24 10:16 BP 104/58 L 07/15/24 10:16 Pulse Ox 98 07/15/24 10:16 Oxygen Delivery Method Room Air 07/15/24 10:16 BMI result Body Mass Index 40.6 Tobacco/Smoking Status: Tobacco use Status Tobacco use date assessed 07/27/23 07/15/24 10:20 Patient Tobacco Use Status Current someday Tobacco 07/15/24 10:20 Tobacco use type Cigar 07/15/24 10:20 e-Cigarette/Vaping Use Never Used 07/15/24 10:20 Thrive Assessment: Date of Thrive Assessment Date Thrive assessed 06/06/24 07/15/24 10:20 Currently or been in a relationship where the following occur: I choose not to answer Const General: well developed; No acute distress Nutritional Appearance: well nourished Orientation/consciousness: patient oriented x3 [facility] Head: Yes normocephalic and Yes atraumatic Eyes General: appearance normal, both eyes and all related structures Pupils: Equal, round and reactive pupils present EOM: EOMs intact bilaterally Resp Effort & Inspection: normal respiratory effort Neuro General: patient oriented x3 and gait normal Cranial nerves: Yes Equal, round and reactive pupils present Psych Affect: normal affect Coding Level of Care Code Est Pt Level 3 (24243) Diagnoses Lumbar radiculopathy M54.16 Lower extremity weakness R29.898 Assessment & Plan Assessment & Plan (1) Lumbar radiculopathy: Code(s): M54.16 - Radiculopathy, lumbar region Category: Medical Plan: Ongoing?lumbar?radiculopathy He?is?using?gabapentin?with?some?improvement. He?is?not?on?any?blood?thinners?and?can?use?NSAIDs- will?send?script?for?naproxen. He?has?not?gotten?lumbar?spine?x-ray?done?yet?but?will?do?so?prior?to?next?visit Advised?physical?therapy?and?he?has?not?started?this.??Will?ask?the?office?to?tr y?to?get?him?scheduled. (2) Lower extremity weakness: Code(s): R29.898 - Other symptoms and signs involving the musculoskeletal system Category: Medical Plan: As?above,?physical?therapy?is?advised. Medications: New naproxen 500 mg PO BID 30 days PRN 60 tabs 3RF pain Changed From gabapentin 300 mg PO Q12H 30 days 60 caps 3RF To gabapentin 300 mg PO TID 30 days PRN 90 caps 3RF pain Refilled omeprazole 20 mg PO DAILY 90 days 90 caps 3RF K21.9 - Gastro-esophageal reflux disease without esophagitis
[2024-07-15 10:16] VITALS: BP 104/58; PULSE 65; RESP 16; TEMP 36.9; O2SAT 98; BMI 40.6
== END 2024-07-15 10:58 | disposition home or self-care (01) ==
LOC: HO.HMCFM 09:36
PROVIDERS: PCP Family Medicine; Visit Provider Family Medicine
DX: M54.16 Radiculopathy, lumbar region (principal); R29.898 Other symptoms and signs involving the musculoskeletal system

== ENCOUNTER → 2024-07-15 09:36 | Outpatient (BNVA) | payer MEDICARE, SELFPAY | PROVIDERS: PCP Family Medicine; Visit Provider Family Medicine | DX: M54.16 Radiculopathy, lumbar region (principal); R29.898 Other symptoms and signs involving the musculoskeletal system | CPT/HCPCS: 99212 ==

== ENCOUNTER 2024-08-05 12:43 | Outpatient (AMB) | payer MEDICARE, SELFPAY ==
--- NOTE | 2024-08-05 17:31 | MHC.OFFVIS ---
Intake Visit Reasons: battery ck Allergies No Known Allergies Allergy (Verified 07/15/24 10:14) PFSH Medical History NICM (nonischemic cardiomyopathy) Hypertension Pacemaker Family History Mother No problems noted. Father No problems noted. Social History Household Members: Family Housing: Other Housing Other:: Patient states he takes care of his mom. Alcohol intake: current Alcohol intake frequency: holidays/special occasions only Alcohol type: hard liquor Patient Tobacco Use Status: Current someday Tobacco user Tobacco use type: Cigar Cigarettes Per Day: 8 Years Smoked: 48 years e-Cigarette/Vaping Use: Never Used service: No Current occupational status: retired Sexual orientation: Unable to collect Gender identity: Unable to collect Cognitive needs: No Hearing needs: No Vision needs: No Office Procedures Cardiac Device Check Cardiac Device Check Details: Medtronic Bi V SENIOR SOFTWARE TESTER D device DDDR mode, low rate 60, battery 1 month, OptiVol crossing 07/07/2024 and ongoing, asymptomatic, RA threshold 0.7 volts at 0.4 milliseconds, RV threshold 0.6 volts at 0.4 milliseconds, LV threshold 0.7 volts at 0.4 millisecond. Having him back in the office in 3 weeks for battery check. [id number] Cardiac Device Check, multi lead implantable defibrillator Procedure code (CPT) selection complete Assessment & Plan Assessment & Plan (1) Cardiac defibrillator in place: Code(s): Z95.810 - Presence of automatic (implantable) cardiac defibrillator Category: Medical Plan: battery 1 mo until [place] Coding Level of Care Code Procedure Only Diagnoses Cardiac defibrillator in place Z95.810 CPT Codes Cardiac Device Check - Cardiac Device 6: 06322-KK Cardiac Device Check, multi lead implantable defibrillator ([id number])
== END 2024-08-05 13:12 | disposition home or self-care (01) ==
LOC: HO.HCS 12:43
PROVIDERS: PCP Family Medicine; Visit Provider Nurse Practitioner Family
DX: Z45.010 Encounter for checking and testing of cardiac pacemaker pulse generator [battery] (principal)
CPT/HCPCS: 93284

== ENCOUNTER → 2024-08-05 12:43 | Outpatient (BNVA) | payer MEDICARE, SELFPAY | PROVIDERS: PCP Family Medicine; Visit Provider Nurse Practitioner Family ==

== ENCOUNTER 2024-09-20 08:22 | Outpatient (AMB) | payer MEDICARE, SELFPAY ==
--- NOTE | 2024-09-20 08:26 | MHC.PC.OV ---
Vital Signs 09/20/24 08:33 Height 5 ft 11 in Weight 294 lb BMI 41.0 BP 126/72 Blood Pressure Location Rt brachial Position Sitting Respiration 15 Pulse 65 Pulse Source Pulse Oximeter Temp 97.8 F Temp Source Temporal Artery Scan Pulse Oximetry (%) 95 Oxygen Delivery Method Room Air Intake Visit Reasons: f/u Lumbar Radiculopathy & PreDM Intake Note: Stanley presents in the office today for lumbar radiculopathy. 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 per policy Allergies No Known Allergies Allergy (Verified 09/20/24 08:29) Medication List - Last Reconciled 09/20/24 by Norbert Fleming MD atorvastatin 80 mg PO BEDTIME 90 days carvedilol 12.5 mg PO BID lisinopril 10 mg PO DAILY naproxen 500 mg PO BID PRN 30 days omeprazole 20 mg PO DAILY 90 days torsemide 20 mg PO DAILY 30 days Tobacco use date assessed: 09/20/24 Fall risk assessment: 2 + Falls in past year Last assessed Fall Risk: 09/20/24 Dental Screening Dental Screen Date: 09/20/24 Did you have a dental visit in the last 12 months?: No Did you have a dental problem in the last 6 months where you did not have access to dental care?: No Was dental information given to patient?: No HPI f/u Lumbar Radiculopathy & PreDM HPI Details Patient?presents?to?follow-up?lumbar?radiculopathy?and?pre?diabetes At?prior?visit,?patient?had?not?gotten?lumbar?plain?films?acquired?or?started?physical?therapy. Had?given?him?a?script?for?naproxen Patient?still?has?not?started?physical?therapy?or?gotten?plain?films?acquired. Pain?has?not?worsened?but?has?not?improved. At?prior?measurement,?A1c?had?increased?from?5.6%?to?5.9%. And?advised?lifestyle?changes. [facility] Medical History NICM (nonischemic cardiomyopathy) Hypertension Pacemaker Family History (Updated 09/20/24 @ 08:32 by Olive Bellamy MA) Mother No problems noted. Father No problems noted. Social History (Updated 09/20/24 @ 08:33 by Olive Bellamy MA) Household Members: Family Housing: Other Housing Other:: Patient states he takes care of his mom. Alcohol intake: current Alcohol intake frequency: holidays/special occasions only Alcohol type: hard liquor Patient Tobacco Use Status: Current everyday Tobacco user Tobacco use type: Cigar Cigarettes Per Day: 8 Years Smoked: 48 years e-Cigarette/Vaping Use: Never Used Second Hand Smoke Exposure: No service: No Current occupational status: retired Sexual orientation: Unable to collect Gender identity: Unable to collect Cognitive needs: No Hearing needs: No Vision needs: No Questionnaire Thrive Questionnaire Date Thrive assessed: 06/06/24 I am a: Patient What is your living situation today?: I have a steady place to live Within the past 12 months, did the food you bought not last and you didn't have the money to get more?: Never true Within the past 12 months, did you worry whether your food would run out before you got money to buy more?: Never true Do you have trouble paying for medicines?: No Do you have trouble getting transportation to medical appointments?: No Do you have trouble paying your heating and electricity bill?: No Do you have trouble taking care of your child, family member or friend?: No Do you have trouble with day-to-day activities such as bathing, preparing meals, shopping, managing finances, etc.?: No Are you currently unemployed and looking for a job?: No Are you interested in more education?: No Please select the resources that you would like help with: None Currently or been in a relationship where the following occur: I choose not to answer THRIVE Score: 0 JULIO-7 AMB Questionnaire JULIO-7 Date JULIO - 7 assessed: 05/25/23 Source: Developed by Drs. Anthony Melendez, Trini Dumont, Jose Alfredo Feliz and colleagues, with an educational jovanna from [employer]. Review of Systems Const Denies chills, Denies fatigue, Denies fever(s), Denies headache(s) and Denies weakness ENT Denies dizziness and Denies headache(s) Card Denies chest pain, Denies lightheadedness, Denies dyspnea and Denies other (Palpitations) Resp Denies cough, Denies dyspnea, Denies wheezing and Denies other ( shortness of breath) Musc Details: Low?back?pain which?radiates?into?buttock & lower?extremity Denies numbness and Denies tingling Neuro Denies dizziness, Denies headache(s), Denies numbness, Denies tingling, Denies paresthesias and Denies weakness Psych Denies anxiety and Denies depression Endo Denies fatigue Aller/Immun Denies wheezing Physical exam (Primary Care) Vital Signs: Last Vital Signs Temp 97.8 F 09/20/24 08:33 Pulse 65 09/20/24 08:33 Resp 15 09/20/24 08:33 BP 126/72 09/20/24 08:33 Pulse Ox 95 09/20/24 08:33 Oxygen Delivery Method Room Air 09/20/24 08:33 BMI result Body Mass Index 41.0 Tobacco/Smoking Status: Tobacco use Status Tobacco use date assessed 09/20/24 09/20/24 08:36 Patient Tobacco Use Status Current everyday Tobacco 09/20/24 08:36 Tobacco use type Cigar 09/20/24 08:33 e-Cigarette/Vaping Use Never Used 09/20/24 08:33 Thrive Assessment: Date of Thrive Assessment Date Thrive assessed 06/06/24 09/20/24 08:27 Currently or been in a relationship where the following occur: I choose not to answer Const General: no acute distress and well developed Nutritional Appearance: well nourished Orientation/consciousness: patient oriented x3 HENMT Head: Yes normocephalic and Yes atraumatic Eyes General: appearance normal, both eyes and all related structures Pupils: Equal, round and reactive pupils present EOM: EOMs intact bilaterally Resp Effort & Inspection: normal respiratory effort Auscultation: clear to auscultation bilaterally Cardio Rate: regular rate Rhythm: regular rhythm Heart sounds: S1 normal heart sound present, S2 normal heart sound present, no gallops, no murmurs and no rubs Back/Spine/Pelvis Other: Pain?and?low?back,?midline?just?above?gluteal?cleft. Neuro General: patient oriented x3 and gait normal Cranial nerves: Yes Equal, round and reactive pupils present Psych Affect: normal affect Results AMB Hemoglobin A1c AMB Hemoglobin A1c 6.2 % Last Edit by Olive Bellamy MA on 09/20/24 08:53 Results Reviewed Results Reviewed: Laboratory Last Values Hgb A1c (Clinic) 6.2 % (4.0-6.0) H 09/20/24 08:45 Coding Level of Care Code Est Pt Level 5 (63697) Diagnoses Elevated fasting glucose R73.01 Prediabetes R73.[address] Z95.810 Back pain M54.9 Assessment & Plan Assessment & Plan (1) Elevated fasting glucose: Code(s): R73.01 - Impaired fasting glucose Category: Medical Plan: Ongoing climb?in?A1c/blood?sugars. Encouraged?diet?lower?in?sugars?and?starches Encouraged?weight?loss?and?exercise?as?tolerated (2) Prediabetes: Code(s): R73.03 - Prediabetes Category: Medical Plan: As?above (3) Cardiac defibrillator in place: Code(s): Z95.810 - Presence of automatic (implantable) cardiac defibrillator Category: Medical Plan: Revision?of?cardiac?defibrillator?placement He?still?has?some?swelling?there?but?no?erythema?or?warmth.??No?pain?and?no?drainage?at?wound?which?appears?to?be?healing?well. He?will?let?me?know?if?he?has?any?of?the?above?S/S?of?infection. Follow-up?with?Cardiology?as?recommended (4) Back pain: Code(s): M54.9 - Dorsalgia, unspecified Category: Medical Plan: Ongoing?back?pain?which?is?unchanged Continue?naproxen Still?has?not?gotten?x-ray?done?so?I?encouraged?this. Still?has?not?tried?physical?therapy?and?I?encouraged?this. Orders: Orders AMB Hemoglobin A1c Today R73.03 - Prediabetes Lipid Panel Today Z00.00 - Encounter for general adult medical examination without abnormal findings Microalbumin, Random (w Creat) Today I10 - Essential (primary) hypertension TSH reflex Free T4 Today Z00.00 - Encounter for general adult medical examination without abnormal findings UA CC w/rflx Micro + Cult Today Z00.00 - Encounter for general adult medical examination without abnormal findings Comprehensive [place]. Panel Fast Today Z00.00 - Encounter for general adult medical examination without abnormal findings Complete Blood Count Auto Diff Today Z00.00 - Encounter for general adult medical examination without abnormal findings
[2024-09-20 08:33] VITALS: BP 126/72; PULSE 65; RESP 15; TEMP 36.6; O2SAT 95; BMI 41.0
== END 2024-09-20 09:27 | disposition home or self-care (01) ==
LOC: HO.HMCFM 08:23
PROVIDERS: PCP Family Medicine; Visit Provider Family Medicine
DX: R73.01 Impaired fasting glucose (principal); R73.03 Prediabetes; Z95.810 Presence of automatic (implantable) cardiac defibrillator; M54.9 Dorsalgia, unspecified

== ENCOUNTER → 2024-09-20 08:22 | Outpatient (BNVA) | payer MEDICARE, SELFPAY | PROVIDERS: PCP Family Medicine; Visit Provider Family Medicine | DX: M54.16 Radiculopathy, lumbar region (principal); R73.03 Prediabetes; R73.01 Impaired fasting glucose; Z95.810 Presence of automatic (implantable) cardiac defibrillator | CPT/HCPCS: 83036; 99212 ==

== ENCOUNTER 2024-11-04 14:18 | Outpatient (AMB) | payer MEDICARE, SELFPAY ==
[2024-11-04 14:44] VITALS: BP 92/50; PULSE 66; BMI 39.0
--- NOTE | 2024-11-04 14:44 | A.OFFVIS_ITS ---
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: No Allergies No Known Allergies Allergy (Verified 11/04/24 14:46) Medication List - Last Reconciled 11/04/24 by Rosalia Melissa, PAULINO-C atorvastatin 80 mg PO BEDTIME 90 days carvedilol 12.5 mg PO BID lisinopril 10 mg PO DAILY naproxen 500 mg PO BID PRN 30 days omeprazole 20 mg PO DAILY 90 days torsemide 20 mg PO DAILY 30 days HPI HPI 6 wk follow up w device ck: Details: Stanley is a 63-year-old male past medical history of hypertension, hyperlipidemia, pre diabetes, morbid obesity, nonischemic cardiomyopathy, left bundle branch block, Bi V ICD who recently had a generator change and now presents for follow-up. Today he reports that he has been doing well since his recent procedure. He says he initially had some swelling but it has gone down. He is pleased that the current pacemaker is less mobile under his skin. No chest discomfort at rest or with activity. No concerning shortness of breath, PND, orthopnea or edema. He will get some lightheadedness if bending over then standing up. No heart palpitations, presyncope, syncope. Takes all meds as directed. Does not want remote monitoring for his device. [facility] Medical History NICM (nonischemic cardiomyopathy) Hypertension Pacemaker Family History Mother No problems noted. Father No problems noted. Social History Household Members: Family Housing: Other Housing Other:: Patient states he takes care of his mom. Alcohol intake: current Alcohol intake frequency: holidays/special occasions only Alcohol type: hard liquor Patient Tobacco Use Status: Current everyday Tobacco user Tobacco use type: Cigar Cigarettes Per Day: 8 Years Smoked: 48 years e-Cigarette/Vaping Use: Never Used Second Hand Smoke Exposure: No service: No Current occupational status: retired Sexual orientation: Unable to collect Gender identity: Unable to collect Cognitive needs: No Hearing needs: No Vision needs: No Review of Systems Const All systems reviewed & are unremarkable except as noted in HPI and below ENT Denies dizziness Card Denies chest pain, Denies chest pain at rest, Denies chest pain with activity, Denies rapid heart rate, Denies pedal edema, Denies edema, Denies leg edema, Denies lightheadedness, Denies palpitations, Denies dyspnea, Denies dyspnea on exertion and Denies orthopnea Resp Denies cough, Denies dyspnea and Denies dyspnea on exertion GI Denies hematochezia and Denies change in stool character Musc Denies abnormal gait, Reports limited range of motion, Reports muscle cramps, Denies muscle weakness, Denies numbness, Denies radiating pain into limb, Denies stiffness and Denies tingling Neuro Denies abnormal gait, Denies dizziness, Denies numbness and Denies tingling Endo Denies palpitations Physical Exam Vital Signs: Last Vital Signs Pulse 66 11/04/24 14:44 BP 92/50 L 11/04/24 14:44 BMI result Body Mass Index 39.0 Const General: cooperative, healthy appearing, comfortable and no acute distress Orientation/consciousness: patient oriented x3 Neck Neck: Yes normal visual inspection Chest Other: ICD site left upper chest well healed Resp Effort & Inspection: normal respiratory effort Auscultation: clear to auscultation bilaterally, no rales, no rhonchi and no wheezes Cardio Jugular venous distension: no JVD Rate: regular rate Rhythm: regular rhythm Heart sounds: S1 normal heart sound present, S2 normal heart sound present, no murmurs and no rubs Neuro General: patient oriented x3 Extrem General: Yes normal to inspection and No no pedal edema Psych Appearance: grossly normal Mental Status: mental status grossly normal Speech and movement: Normal speech and movement present Affect: normal affect Office Procedures Cardiac Device Check Cardiac Device Check Details: [employer] Directtronic Bi V ICD interrogation today shows battery 11.9 years DDDR mode, low rate 60, atrial threshold 0.75 volts at 0.4 milliseconds, RV threshold 0.75 volts at 0.4 milliseconds, LV threshold 0.5 volts at 0.4 milliseconds, V paced 94 %, no episodes output changes prolong battery life from 7.9 years up to 11.9. [id number] Cardiac Device Check, multi lead implantable defibrillator Procedure code (CPT) selection complete Assessment & Plan Assessment & Plan (1) NICM (nonischemic cardiomyopathy): Code(s): I42.8 - Other cardiomyopathies Category: Medical Plan: History of nonischemic cardiomyopathy. Was previously followed by [facility] cardiology and switch to this office in 2022. He has history of left bundle branch block and has CRTD in place since 2011. Last echocardiogram 01/18/2023 showed EF 45-50%, limited visualization of the valves with normal Dopplers. He has been on carvedilol and lisinopril for neurohormonal modulation. On exam today he does not appear fluid overloaded. He continues on torsemide daily. Labs 04/22/2024 showed potassium 3.7, creatinine 0.87. No med changes made today. Signs and symptoms of heart failure reviewed with him. (2) Cardiac defibrillator in place: Code(s): Z95.810 - Presence of automatic (implantable) cardiac defibrillator Category: Medical Plan: Medtronic Bi V ICD in place. Interrogation today shows device is functioning normally. Battery 11.9 years. He does not have remote monitoring and tells me he does not believe in it. Next office interrogation due in 6 months. (3) Hypertension: Code(s): I10 - Essential (primary) hypertension Category: Medical Plan: Blood pressure goal less than 130/80. Blood pressure low today, asymptomatic. Reviewed need for good hydration. No medication changes made. (4) Hyperlipidemia: Code(s): E78.5 - Hyperlipidemia, unspecified Category: Medical Plan: [place] LDL 100. No known history of CAD. He is on atorvastatin 80 mg daily. Labs done 05/18/2023 showed LDL 75. Recommend updated lipid profile. Plan Time spent on chart review, documentation, interviewed assessment Coding Level of Care Code Est Pt Level 4 (07349) Diagnoses NICM (nonischemic cardiomyopathy) I42.[address] Z95.810 Hypertension I10 Hyperlipidemia E78.5 CPT Codes Cardiac Device Check - Cardiac Device 6: [id number] Cardiac Device Check, multi lead implantable defibrillator ([id number])
--- OUTSIDE RECORDS SUMMARY | 2024-11-04 15:42 | XMS_ITS ---
Author Name [facility] Organization Unknown Care Team Organization Name Specialty Phone Email Start Date End Da te [facility] CCDA 025 [facility] ADT 10/05/19 25 [facility] CCDA 025 09/25/2024
== END 2024-11-04 15:39 | disposition home or self-care (01) ==
LOC: HO.HCS 14:19
PROVIDERS: PCP Family Medicine; Visit Provider Nurse Practitioner Family
DX: I42.8 Other cardiomyopathies (principal); Z95.810 Presence of automatic (implantable) cardiac defibrillator; I10 Essential (primary) hypertension; E78.5 Hyperlipidemia, unspecified
CPT/HCPCS: 93284; 99214

== ENCOUNTER → 2024-11-04 14:18 | Outpatient (BNVA) | payer MEDICARE, SELFPAY | PROVIDERS: PCP Family Medicine; Visit Provider Nurse Practitioner Family | DX: I10 Essential (primary) hypertension (principal); E78.5 Hyperlipidemia, unspecified; I42.8 Other cardiomyopathies; Z95.810 Presence of automatic (implantable) cardiac defibrillator; E66.9 Obesity, unspecified | CPT/HCPCS: 99212 ==

== ENCOUNTER 2024-12-24 10:34 | Outpatient (AMB) | payer MEDICARE, SELFPAY ==
--- NOTE | 2024-12-24 10:43 | A.OFFPC_ITS ---
Vital Signs 12/24/24 10:50 Height 5 ft 11 in Weight 270 lb 6 oz BMI 37.7 BP 118/70 Blood Pressure Location Lt brachial Position Sitting Respiration 12 Pulse 71 Pulse Source Pulse Oximeter Temp 97.1 F Temp Source Oral Pulse Oximetry (%) 99 Oxygen Delivery Method Room Air Intake Visit Reasons: follow-up pre diabetes Intake Note: Follow up pre diabetes. Registered Public Health Nurse Required: No Allergies No Known Allergies Allergy (Verified 12/24/24 10:44) Medication List - Last Reconciled 12/24/24 by Norbert Fleming MD atorvastatin 80 mg PO BEDTIME 90 days carvedilol 12.5 mg PO BID lisinopril 10 mg PO DAILY naproxen 500 mg PO BID PRN 30 days omeprazole 20 mg PO DAILY 90 days torsemide 20 mg PO DAILY 30 days Tobacco use date assessed: 12/24/24 Fall risk assessment: No Falls in past year Last assessed Fall Risk: 12/24/24 Dental Screening Dental Screen Date: 12/24/24 Did you have a dental visit in the last 12 months?: Yes Did you have a dental problem in the last 6 months where you did not have access to dental care?: No Was dental information given to patient?: Patient has dentist HPI follow-up pre diabetes HPI Details 64 y/o male presents to f/u pre-diabetes . A1c today 5.9%, improved from prior. Has lost about 10 lbs since office visit in October. Reports ongoing stressors with his family. [facility] Medical History NICM (nonischemic cardiomyopathy) Hypertension Pacemaker Family History Mother No problems noted. Father No problems noted. Social History Household Members: Family Housing: Other Housing Other:: Patient states he takes care of his mom. Alcohol intake: current Alcohol intake frequency: holidays/special occasions only Alcohol type: hard liquor Patient Tobacco Use Status: Current everyday Tobacco user Tobacco use type: Cigar Cigarettes Per Day: 8 Years Smoked: 48 years Packs per year/per ci.00 e-Cigarette/Vaping Use: Never Used Second Hand Smoke Exposure: No service: No Current occupational status: retired Sexual orientation: Unable to collect Gender identity: Unable to collect Cognitive needs: No Hearing needs: No Vision needs: No Questionnaire PHQ-9 Over the last 2 weeks, how often have you been bothered by any of the following problems? 1. Little interest or pleasure in doing things: not at all 2. Feeling down, depressed, or hopeless: not at all 3. Trouble falling or staying asleep, or sleeping too much: not at all 4. Feeling tired or having little energy: not at all 5. Poor appetite or overeating: not at all 6. Feeling bad about yourself - or that you are a failure or have let yourself or your family down: not at all 7. Trouble concentrating on things, such as reading the newspaper or watching television: not at all 8. Moving or speaking so slowly that other people could have noticed. Or the opposite - being so fidgety or restless that you have been moving around a lot more than usual: not at all 9. Thoughts that you would be better off or of hurting yourself in some way: not at all Total score: 0 Depression Screening Interpretation: Negative Depression Screening Done: Yes 30290 - PHQ-9 Billing: Yes Source: Developed by Drs. Anthony Melendez, Trini Dumont, Jose Alfredo Feliz and colleagues, with an educational jovanna from [employer]. Thrive Questionnaire Date Thrive assessed: 12/24/24 I am a: Patient What is your living situation today?: I have a steady place to live Within the past 12 months, did the food you bought not last and you didn't have the money to get more?: Never true Within the past 12 months, did you worry whether your food would run out before you got money to buy more?: Never true Do you have trouble paying for medicines?: No Do you have trouble getting transportation to medical appointments?: No Do you have trouble paying your heating and electricity bill?: No Do you have trouble taking care of your child, family member or friend?: No Do you have trouble with day-to-day activities such as bathing, preparing meals, shopping, managing finances, etc.?: No Are you currently unemployed and looking for a job?: No Are you interested in more education?: No Please select the resources that you would like help with: None Currently or been in a relationship where the following occur: I choose not to answer THRIVE Score: 0 JULIO-7 AMB Questionnaire JULIO-7 Date JULIO - 7 assessed: 12/24/24 Feeling nervous, anxious, or on edge: 0 = Not at all Not being able to stop or control worryin = Not at all Worrying too much about different things: 0 = Not at all Trouble relaxin = Not at all Being so restless that it is hard to sit still: 0 = Not at all Becoming easily annoyed or irritable: 0 = Not at all Feeling afraid as if something awful might happen: 0 = Not at all Total JULIO-7 score (0-4 normal; 5-9 mild; 10-14 moderate; 15-21 severe): 0 Source: Developed by Drs. Anthony Melendez, Trini Dumont, Jose Alfredo Feliz and colleagues, with an educational jovanna from [employer]. JULIO-7 Assessment Billing JULIO-7 Assessment Tool: JULIO-7 Assessment 07652 Review of Systems Const Denies chills, Denies fatigue, Denies fever(s), Denies headache(s) and Denies weakness ENT Denies dizziness and Denies headache(s) Card Denies dyspnea Resp Denies cough, Denies dyspnea, Denies wheezing and Denies other (shortness of breath) Musc Denies numbness and Denies tingling Neuro Denies dizziness, Denies headache(s), Denies numbness, Denies tingling and Denies weakness Psych Denies anxiety and Denies depression Endo Denies fatigue Aller/Immun Denies wheezing Physical exam (Primary Care) Vital Signs: Last Vital Signs Temp 97.1 F 12/24/24 10:50 Pulse 71 12/24/24 10:50 Resp 12 12/24/24 10:50 BP 118/70 12/24/24 10:50 Pulse Ox 99 12/24/24 10:50 Oxygen Delivery Method Room Air 12/24/24 10:50 BMI result Body Mass Index 37.7 Tobacco/Smoking Status: Tobacco use Status Tobacco use date assessed 12/24/24 12/24/24 10:44 Patient Tobacco Use Status Current everyday Tobacco 12/24/24 10:44 Tobacco use type Cigar 12/24/24 10:44 e-Cigarette/Vaping Use Never Used 12/24/24 10:44 PHQ-9: PHQ-9 Score PHQ-9: Total score 0 12/24/24 11:41 Depression Screening Interpretation: Negative Thrive Assessment: Date of Thrive Assessment Date Thrive assessed 12/24/24 12/24/24 10:44 Currently or been in a relationship where the following occur: I choose not to answer Const General: well developed; No acute distress Nutritional Appearance: well nourished Orientation/consciousness: patient oriented x3 HENMT Head: Yes normocephalic and Yes atraumatic Eyes General: appearance normal, both eyes and all related structures Pupils: Equal, round and reactive pupils present EOM: EOMs intact bilaterally Resp Effort & Inspection: normal respiratory effort Auscultation: clear to auscultation bilaterally Cardio Rate: regular rate Rhythm: regular rhythm Heart sounds: S1 normal heart sound present, S2 normal heart sound present, no gallops, no murmurs and no rubs Neuro General: patient oriented x3 and gait normal Cranial nerves: Yes Equal, round and reactive pupils present Psych Affect: normal affect Results AMB Hemoglobin A1c AMB Hemoglobin A1c 5.9 % Last Edit by Luciano De Los Santos MA on 12/24/24 11:02 Results Reviewed Results Reviewed: Laboratory Last Values Hgb A1c (Clinic) 5.9 % (4.0-6.0) 12/24/24 10:44 Coding Level of Care Code Est Pt Level 3 (62222) Diagnoses Anxiety F41.9 Prediabetes R73.03 Additional Codes JULIO-7 Assessment Billing - JULIO-7 Assessment Tool: JULIO-7 Assessment 21849 ([id number]) PHQ-9 - 06820 - PHQ-9 Billing: Yes ([id number]) Assessment & Plan Assessment & Plan (1) Anxiety: Code(s): F41.9 - Anxiety disorder, unspecified Category: Medical Plan: Patient notes significant frustration with family members and legal issues with care of his mom Recommended he speak to a therapist but he declines this. Briefly discussed medication but he declined this as well for now. (2) Prediabetes: Code(s): R73.03 - Prediabetes Category: Medical Plan: Patient has lost about 10 lb and is walking a treadmill A1c has improved to 5.9%. Congratulated patient on improvement and encouraged diet low in sugars and starches as well as additional weight loss Orders: Orders AMB Hemoglobin A1c Today Z13.9 - Encounter for screening, unspecified
[2024-12-24 10:50] VITALS: BP 118/70; PULSE 71; RESP 12; TEMP 36.2; O2SAT 99; BMI 37.7
== END 2024-12-24 11:59 | disposition home or self-care (01) ==
LOC: HO.HMCFM 10:35
PROVIDERS: PCP Family Medicine; Visit Provider Family Medicine
DX: F41.9 Anxiety disorder, unspecified (principal); R73.03 Prediabetes; Z13.9 Encounter for screening, unspecified

== ENCOUNTER → 2024-12-24 10:34 | Outpatient (BNVA) | payer MEDICARE, SELFPAY | PROVIDERS: PCP Family Medicine; Visit Provider Family Medicine | DX: I10 Essential (primary) hypertension (principal); F41.9 Anxiety disorder, unspecified; R73.03 Prediabetes | CPT/HCPCS: 83036; 96127; 99212 ==